=== PATIENT | male | born 1945 | race Caucasian/White ===

== ENCOUNTER 2019-04-27 15:46 | Inpatient (IN) ==
[2019-04-27] MEDS ORDERED: IOPAMIDOL 100 ML BOTTLE IV ONE (15:47)
[2019-04-27] MEDS ORDERED: 0.9 % SODIUM CHLORIDE 500 ML IV ONE (16:09)
--- NOTE | 2019-04-27 16:13 | Emergency Department Note ---
Abdominal Pain HPI - General Chief Complaint: Abdominal Pain Stated Complaint: Abdominal pain/ concern for bowel blockage Time Seen by Provider: 04/27/19 15:57 Source: patient Mode of arrival: ambulatory Limitations: no limitations - History of Present Illness HPI Narrative: 73-year-old male patient presents emergency department with chief complaint of abdominal pain, distention, and constipation. Patient tells me has not had a normal bowel movement since Monday. He describes the abdominal pain is diffuse throughout his abdomen. He describes a "tightness" when he tries to move around. He has an known history of Crohn's disease and has undergone a bowel resection in 1974. He denies any systemic fever, sweats, chills, shortness of breath, parasternal chest pain, palpitations, nausea, vomiting, dysuria, hematuria, or focal weakness. Review his active problem list is rather extensive but shows the following: Fever of unknown origin, ankylosis of SI joints, inflammatory bowel disease, osteoarthritis and knee, idiopathic peripheral neuropathy, atrial fibrillation, kidney stones, hypertension, CVA, macular degeneration. - Related Data Home Medications Medication Instructions Recorded Confirmed PreserVision AREDS PO .qd 03/12/15 04/24/19 cyanocobalamin (vitamin B-12) 1,000 mcg PO QDAY tab 03/12/15 04/27/19 1,000 mcg tablet ramipril 5 mg capsule 5 mg PO QDAY cap 03/12/15 04/27/19 omeprazole 20 mg capsule,delayed PO #90 cap 08/16/18 04/24/19 release rivaroxaban 20 mg tablet 20 mg PO QDAY 08/16/18 04/27/19 Allergies Allergy/AdvReac Type Severity Reaction Status Date / Time No Known Drug Allergies Allergy Verified 04/27/19 15:51 Review of Systems All systems ED: reviewed and negative except as stated. Abdominal Pain PMH - Social History Smoking status: Former smoker Physical Exam Limitations: no limitations General appearance: alert, in no apparent distress Head: atraumatic, normocephalic Eye: Present: normal appearance, PERRL, EOMI. Absent: scleral icterus, conjunctival injection ENT: Present: normal oropharynx, mucous membranes moist Neck: Present: trachea midline. Absent: lymphadenopathy, thyromegaly Chest: Present: symmetric chest wall rise Respiratory: Present: normal lung sounds bilaterally. Absent: respiratory distress, wheezes, stridor, accessory muscle use, prolonged expiratory phase Cardiovascular: Present: regular rate, normal rhythm. Absent: systolic murmur, diastolic murmur Abdominal: Present: distention, tenderness, rigidity, hyperactive bowel sounds, scar (midline surgical scar to the area below the umbilicus.), other (percussion showing hypertympanic sounds throughout.). Absent: guarding, rebound, organomegaly Abdominal tenderness: Present: diffuse, moderate Extremities: Absent: pedal edema, pretibial edema, calf tenderness Back: Absent: CVA tenderness (R), CVA tenderness (L) Neurological: Present: alert, oriented X3 Psychiatric: Present: normal affect, normal mood Skin: Present: warm Course Course Narrative: Patient is brought into the emergency department and a history of physical exam was performed. Saline lock was established and laboratory studies were drawn. A contrast abdomen/pelvic CT scan was ordered. Normal saline at 500 mL bolus was provided. Review of his laboratory studies show the following: CBC elevated WBC 14.9, granulocytes percent 85.9, granulocytes #12.8, all as normal limits. CMP potassium 3.0, chloride 95, glucose 171, alkaline phosphatase 156, albumin 3.1, globulin 3.8. ESR 96. CRP 36.2. Urinalysis showing clear yellow urine with specific gravity 1.015 and pH 6.0. Positive proteinuria, several RBC, and several casts. No C&S indicated. Abdominal CT scan with contrast read by the radiologist as recurrent active Crohn's disease involving the distal jejunum and ileum. He mentions is no evidence of abscess, fistula, or bowel obstruction. After reviewing all the data I reached out to a military lawyer in [place] (Dr. Flowers) and requested guidance about treatment options. At this time the gastrologist recommended admission, bowel rest, IV steroids, and pain control. She advised me that the typical treatment course is anywhere from 3-5 days. However, He should respond to therapy within 24-48 hours. If not then further workup may be needed. I discussed this with the patient verbalizes understanding. I then reached out for hospitalist (Dr. Mac) and explained the patient's need for admission. At this time Dr. Mac recommended a lactic acid level be drawn. He has consented to receive the patient. At this time the patient admitted to the hospital under the care of Dr. Mac. All further treatment decisions will be carried out by him. Vital Signs Temperature 97.7 F 04/27/19 15:47 Pulse Rate 114 H 04/27/19 15:47 Respiratory Rate 17 04/27/19 15:47 Blood Pressure 118/69 04/27/19 15:47 Pulse Oximetry (%) 96 04/27/19 15:47 Temperature 97.7 F 04/27/19 15:47 Pulse Rate 88 04/27/19 19:01 Respiratory Rate 22 04/27/19 19:01 Blood Pressure 123/88 04/27/19 20:01 Pulse Oximetry (%) 97 04/27/19 20:01 Abdominal Pain - Lab Data Lab results reviewed: Yes I reviewed the patient's lab results. Result diagrams: 04/27/19 16:15 04/27/19 16:15 Lab Results 04/27/19 04/27/19 04/27/19 Range/Units 16:15 16:15 16:15 WBC 14.9 H (4.5-11.0) K/mcL RBC 4.68 (4.50-5.90) M/mcL Hgb 13.7 (13.5-16.5) g/dL Hct 41.6 (41.0-55.0) % POC Hct 42.0 (41.0-55.0) % MCV 88.7 (80.0-100.0) fL MCH 29.2 (26.0-34.0) pg MCHC 32.9 (31.0-36.0) g/dL RDW 12.4 (11.5-14.5) % Plt Count 248 (140-440) K/mcL MPV 9.9 (7.4-10.4) fL Gran % 85.9 H (38.0-78.0) % Lymph % (Auto) 5.4 L (15.5-49.0) % [place] % (Auto) 8.6 (1.0-12.0) % Eos % (Auto) 0.1 (0.0-7.0) % Baso % (Auto) 0 (0.0-2.0) % Gran # 12.8 H (1.8-8.0) K/mcL Lymph # (Auto) 0.8 L (1.5-4.8) K/mcL [place] # (Auto) 1.3 H (0.1-0.9) K/mcL Eos # (Auto) 0 (0.0-0.7) K/mcL Baso # (Auto) 0 (0.0-0.3) K/mcL ESR 96 H (0-15) mm/hr POC Sodium 136 (133-145) mmol/L Sodium 135 (133-145) mmol/L POC Potassium 2.9 L* (3.3-5.1) mmol/L Potassium 3.0 L (3.3-5.1) mmol/L POC Chloride 96 (96-108) mmol/L Chloride 95 L (96-108) mmol/L Carbon Dioxide 27 (22-30) mmol/L POC Total CO2 29 (22-30) mmol/L Anion Gap 13.0 (8-16) POC BUN 19 (8-23) mg/dl BUN 19 (8-23) mg/dl Creatinine 1.0 (0.7-1.2) mg/dl POC Creatinine 1.1 (0.7-1.2) mg/dl GFR Calculation 74 Glucose 171 H (70-105) mg/dL POC Glucose 168 H (70-105) mg/dL Calcium 9.8 (8.6-10.4) mg/dl POC WB Ioniz Calcium 1.14 L (1.16-1.32) mmol/L Total Bilirubin 0.9 (0.0-1.0) mg/dL AST 17 (0-37) U/l ALT 12 (0-40) U/l Alkaline Phosphatase 156 H (39-117) U/L C-Reactive Protein (0.0-0.8) mg/dl Total Protein 6.9 (5.9-8.4) gm/dL Albumin 3.1 L (3.2-5.2) gm/dL Globulin 3.8 H (2.2-3.7) gm/dL Albumin/Globulin Ratio 0.8 L (1.0-2.3) Urine Color Urine Appearance Urine pH (5.0-9.0) Ur Specific [place] (1.003-1.030) Urine Protein (NEG) mg/dL Urine Glucose (UA) (NEG) mg/dL Urine Ketones (NEG) mg/dL Urine Occult Blood (<0.03) mg/dL Urine Nitrate (NEG) Urine Bilirubin (NEG) mg/dL Urine Urobilinogen (NEG) mg/dL Ur Leukocyte Esterase (NEG) /uL Urine RBC (0-1) /hpf Urine WBC (0-4) /hpf Ur Squamous Epith Cells (0-4) /hpf Urine Bacteria (0) /hpf Hyaline Casts (0-2) /lpf Urine Mucus (0) /hpf Ur Culture Indicated? 04/27/19 04/27/19 Range/Units 16:15 18:24 WBC (4.5-11.0) K/mcL RBC (4.50-5.90) M/mcL Hgb (13.5-16.5) g/dL Hct (41.0-55.0) % POC Hct (41.0-55.0) % MCV (80.0-100.0) fL MCH (26.0-34.0) pg MCHC (31.0-36.0) g/dL RDW (11.5-14.5) % Plt Count (140-440) K/mcL MPV (7.4-10.4) fL Gran % (38.0-78.0) % Lymph % (Auto) (15.5-49.0) % [place] % (Auto) (1.0-12.0) % Eos % (Auto) (0.0-7.0) % Baso % (Auto) (0.0-2.0) % Gran # (1.8-8.0) K/mcL Lymph # (Auto) (1.5-4.8) K/mcL [place] # (Auto) (0.1-0.9) K/mcL Eos # (Auto) (0.0-0.7) K/mcL Baso # (Auto) (0.0-0.3) K/mcL ESR (0-15) mm/hr POC Sodium (133-145) mmol/L Sodium (133-145) mmol/L POC Potassium (3.3-5.1) mmol/L Potassium (3.3-5.1) mmol/L POC Chloride (96-108) mmol/L Chloride (96-108) mmol/L Carbon Dioxide (22-30) mmol/L POC Total CO2 (22-30) mmol/L Anion Gap (8-16) POC BUN (8-23) mg/dl BUN (8-23) mg/dl Creatinine (0.7-1.2) mg/dl POC Creatinine (0.7-1.2) mg/dl GFR Calculation Glucose (70-105) mg/dL POC Glucose (70-105) mg/dL Calcium (8.6-10.4) mg/dl POC WB Ioniz Calcium (1.16-1.32) mmol/L Total Bilirubin (0.0-1.0) mg/dL AST (0-37) U/l ALT (0-40) U/l Alkaline Phosphatase (39-117) U/L C-Reactive Protein 36.2 H (0.0-0.8) mg/dl Total Protein (5.9-8.4) gm/dL Albumin (3.2-5.2) gm/dL Globulin (2.2-3.7) gm/dL Albumin/Globulin Ratio (1.0-2.3) Urine Color Yellow Urine Appearance Clear Urine pH 6.0 (5.0-9.0) Ur Specific [place] 1.015 (1.003-1.030) Urine Protein 30 A (NEG) mg/dL Urine Glucose (UA) Negative (NEG) mg/dL Urine Ketones Neg (NEG) mg/dL Urine Occult Blood Neg (<0.03) mg/dL Urine Nitrate Neg (NEG) Urine Bilirubin Neg (NEG) mg/dL Urine Urobilinogen 4.0 A (NEG) mg/dL Ur Leukocyte Esterase Neg (NEG) /uL Urine RBC 3 H (0-1) /hpf Urine WBC 0 (0-4) /hpf Ur Squamous Epith Cells 0 (0-4) /hpf Urine Bacteria 0 (0) /hpf Hyaline Casts 6 H (0-2) /lpf Urine Mucus Few (0) /hpf Ur Culture Indicated? No - Radiology Data Radiology results reviewed: Yes I reviewed the patient's radiology results. Ordering Physician: Kaz Grimes PA-C Date of Service: 04/27/19 Procedure(s): CT abdomen pelvis w con Accession Number(s): [id number] History: Abdominal pain, distention, Crohn's disease and prior bowel resection 1974 TECHNIQUE: The patient was imaged following intravenous but no oral contrast from the diaphragm to the symphysis pubis. Sagittal and coronal reformats are created. Radiation exposure was limited using dose reduction technology. FINDINGS: There are several linear bands of scar tissue in both lung bases. There are few small scattered cysts in the liver. The majority of these were present in 2010. Beneath the capsule high in segment seven of the right lobe there is an oval-shaped 1.6 cm nodule with low-level homogeneous enhancement. This was not clearly identified in 2010. The spleen is normal in size and homogeneous. There is a 2 cm accessory spleen posterior and inferior to the lower pole. Gallbladder is contracted. There are no stones in the bile ducts are nondilated. No mass or inflammation are present in the pancreas. The adrenals are normal. Patient has a few cysts in both kidneys. The largest is located anteriorly in the lower pole of the right kidney and measures 3.4 cm. Kidney stones were seen on the prior CT scan and patient had a stone in the distal left ureter causing hydronephrosis on the previous exam. These findings have since resolved. There are several segments of inflamed distal jejunum and ileum in the mid pelvis. There is asymmetric thickening of the person and focal dilatation of some of the segments. There are skip lesions. There is inflammation and stranding of the adjacent mesenteric fat. No abscess or ascites are present. There is no bowel obstruction. There is no inflammation of the wall of the large intestine. No diverticular present. Patient has scattered plaques in the aorta. Prostate is mildly enlarged and contains calcifications. There is chronic ankylosis in the lumbar spine and lower thoracic spine. There is squaring of the vertebra. These findings have remained stable since 2010 and are consistent with ankylosing spondylitis. IMPRESSION: Recurrent active Crohn's disease involving the distal jejunum and ileum. There is no evidence of an abscess and there is no obvious fistula. No bowel obstruction Kaztomasa Grimes was called with the results Interpreted and Authenticated by: Juancarlos Sandy 04/27/19 - EKG Data EKG attestation: Yes I reviewed and interpreted this EKG., Yes There are no EKG findings of acute coronary syndrome, Yes This EKG will be read by human projectile Disposition Pt seen by SOUND EFFECTS TECHNICIAN/PA only: Yes Clinical Impression: Crohn's colitis Qualifiers: Digestive disease complication type: unspecified complication Qualified Code(s): K50.119 - Crohn's disease of large intestine with unspecified complications Disposition: Xfer As Inpt ([facility]) Condition: Good Instructions: Crohn Disease (ED) Additional Instructions: Patient is being admitted to the hospital to the care of the hospitalist (Dr. Mac). All other treatment decisions will be carried out by him. Referrals: Catalino Londono MD [Primary Care Provider] - Time of Disposition: 20:25
[2019-04-27 16:23] LABS: POC Blood Urea Nitrogen 19 mg/dl (8-23); POC CO2 29 mmol/L (22-30); POC Calcium, Ionized 1.14 mmol/L (1.16-1.32); POC Chloride 96 mmol/L (96-108); POC Creatinine 1.1 mg/dl (0.7-1.2); POC Glucose, Random 168 mg/dL (70-105); POC Potassium 2.9 mmol/L (3.3-5.1); POC Sodium 136 mmol/L (133-145)
[2019-04-27] MEDS ORDERED: POTASSIUM CHLORIDE 20 MEQ in DEXTROSE 5% IN WATER 250 ML IV ONE (16:29)
[2019-04-27 16:48] LABS: Basophils # (Auto) 0 K/mcL (0.0-0.3); Basophils % (Auto) 0 % (0.0-2.0); Eosinophils # (Auto) 0 K/mcL (0.0-0.7); Eosinophils % (Auto) 0.1 % (0.0-7.0); Granulocytes % (Auto) 85.9 % (38.0-78.0); Hematocrit 41.6 % (41.0-55.0); Hemoglobin 13.7 g/dL (13.5-16.5); Lymphocytes # (Auto) 0.8 K/mcL (1.5-4.8); Lymphocytes % (Auto) 5.4 % (15.5-49.0); Mean Cell Volume 88.7 fL (80.0-100.0); Mean Corpuscular HGB Conc 32.9 g/dL (31.0-36.0); Mean Platelet Volume 9.9 fL (7.4-10.4); Monocytes # (Auto) 1.3 K/mcL (0.1-0.9); Monocytes % (Auto) 8.6 % (1.0-12.0); Platelet Count 248 K/mcL (140-440); RBC 4.68 M/mcL (4.50-5.90); Red Cell Distribution Width 12.4 % (11.5-14.5); WBC 14.9 K/mcL (4.5-11.0)
[2019-04-27 17:05] LABS: ALT/SGPT 12 U/l (0-40); AST/SGOT 17 U/l (0-37); Albumin 3.1 gm/dL (3.2-5.2); Albumin/Globulin Ratio 0.8 (1.0-2.3); Alkaline Phosphatase 156 U/L (39-117); Bilirubin,Total 0.9 mg/dL (0.0-1.0); Blood Urea Nitrogen 19 mg/dl (8-23); Calcium 9.8 mg/dl (8.6-10.4); Carbon Dioxide 27 mmol/L (22-30); Chloride 95 mmol/L (96-108); Globulin 3.8 gm/dL (2.2-3.7); Glomerular Filtration Rate 74; Glucose 171 mg/dL (70-105)
--- NOTE | 2019-04-27 17:18 | Cat Scan Report ---
History: Abdominal pain, distention, Crohn's disease and prior bowel resection 1974 TECHNIQUE: The patient was imaged following intravenous but no oral contrast from the diaphragm to the symphysis pubis. Sagittal and coronal reformats are created. Radiation exposure was limited using dose reduction technology. FINDINGS: There are several linear bands of scar tissue in both lung bases. There are few small scattered cysts in the liver. The majority of these were present in 2010. Beneath the capsule high in segment seven of the right lobe there is an oval-shaped 1.6 cm nodule with low-level homogeneous enhancement. This was not clearly identified in 2010. The spleen is normal in size and homogeneous. There is a 2 cm accessory spleen posterior and inferior to the lower pole. Gallbladder is contracted. There are no stones in the bile ducts are nondilated. No mass or inflammation are present in the pancreas. The adrenals are normal. Patient has a few cysts in both kidneys. The largest is located anteriorly in the lower pole of the right kidney and measures 3.4 cm. Kidney stones were seen on the prior CT scan and patient had a stone in the distal left ureter causing hydronephrosis on the previous exam. These findings have since resolved. There are several segments of inflamed distal jejunum and ileum in the mid pelvis. There is asymmetric thickening of the person and focal dilatation of some of the segments. There are skip lesions. There is inflammation and stranding of the adjacent mesenteric fat. No abscess or ascites are present. There is no bowel obstruction. There is no inflammation of the wall of the large intestine. No diverticular present. Patient has scattered plaques in the aorta. Prostate is mildly enlarged and contains calcifications. There is chronic ankylosis in the lumbar spine and lower thoracic spine. There is squaring of the vertebra. These findings have remained stable since 2010 and are consistent with ankylosing spondylitis. IMPRESSION: Recurrent active Crohn's disease involving the distal jejunum and ileum. There is no evidence of an abscess and there is no obvious fistula. No bowel obstruction Kaz Rueda was called with the results Interpreted and Authenticated by: Juancarlos Sandy 04/27/19
[2019-04-27 18:14] LABS: C-Reactive Protein 36.2 mg/dl (0.0-0.8)
[2019-04-27 19:20] LABS: Appearance,Urine CLEAR; Bacteria,Urine 0 /hpf (0); Bilirubin,Urine NEG (NEG); Color,Urine YELLOW; Culture Indicated,Urine NO; Glucose,Urine (UA) NEGATIVE (NEG); Ketones,Urine NEG (NEG); Leukocyte Esterase,Urine NEG /uL (NEG); Mucus,Urine FEW /hpf (0); Nitrate,Urine NEG (NEG); Protein,Urine 30 mg/dL (NEG); Specific Gravity,Urine 1.015 (1.003-1.030); Urine Blood NEG mg/dL (<0.03); Urine Hyaline Cast 6 /lpf (0-2); Urine RBC 3 /hpf (0-1); Urine Squamous Epithelial Cell 0 /hpf (0-4); Urine WBC 0 /hpf (0-4)
[2019-04-27] MEDS ORDERED: 0.9 % SODIUM CHLORIDE 1,000 ML IV ONE (20:31)
--- NOTE | 2019-04-27 20:37 | Internal Med History&Physical ---
Medical - H&P: [facility] Patient information: Note initiated : 04/27/19 at 8:34 pm Service Date, if different from initiated Date: [] Patient: Jeremy Turner a 73 y/o M admitted on for Abdominal pain/ concern for bowel blockage. Chief Complaint: [] History of present illness: Mr. Turner is a 73 year old M With fever and abdominal pain. Patient states he had a Crohn's flare about 3 weeks ago. And then last Monday he was feeling better and [facility]. And then that night started having abdominal pain again which is described as crampy and tight generalized but also focused on right lower quadrant at times. She went to the [facility] Monday. Is bowel movements were one on Monday and then he did have a small and on . Typically has 5 a day. Today he has continued abdominal pain and fevers and presented to the ED. In the ED his vitals were stable, afebrile. Head of leukocytosis. Lactate was okay 1.3. Elevated ESR and CRP. And low potassium. CT and pelvis showed evidence of recurrent active Crohn's disease. Case was discussed with [facility] account manager b2b who recommended admission , bowel rest and IV Solu-Medrol, and pain control. Patient had abdominal distention as well and was worried about a bowel obstruction which the CT did not show. Patient did have a large bowel movement in the ED which did improve his distention and abdominal pain. Denies nausea vomiting. Review of Systems: Pertinent positives above. Denies headache//chills/nausea/vomiting/chest pain/cough/dyspnea/diarrhea. Pertinent positives as above. Medical - H&P: [facility] Medical history: Medical History (Last Reviewed 04/24/19 @ 17:18 by Aristides Brown PA-C) Encounter for long-term (current) use of high-risk medication (Acute) Back stiffness (Acute) Ankylosis of sacroiliac joint (Acute) Back pain (Acute) Ankylosing spondylitis (Acute) History of tobacco use (Chronic) Low back pain (Chronic) IBD (inflammatory bowel disease) (Chronic) Bursitis of left shoulder (Chronic) Left shoulder pain (Chronic) Scabies (Chronic ~03/2016) Pain of left heel (Chronic) Left epididymitis (Chronic) Spondyloarthritis (Acute) Primary osteoarthritis of left knee (Chronic) Idiopathic peripheral neuropathy (Chronic) Body mass index (BMI) of 24.0-24.9 in adult (Chronic) Plantar fascial fibromatosis (Chronic) Crohn's disease of small intestine without complication (Chronic) Chronic atrial fibrillation (Chronic) Kidney stones (Acute) Crohn disease (Acute) Hypertension (Acute) Atrial fibrillation (Acute) Joint pain (Acute) Hernia, inguinal (Acute) Urolithiasis (Acute) Stroke (Acute) Arthritis (Acute) Macular degeneration, wet (Acute) White coat hypertension (Acute) Past Surgical History (Last Reviewed 04/24/19 @ 17:18 by Aristides Brown PA-C) S/P trigger finger release (Acute) H/O colonoscopy (Chronic) History of kidney surgery (Chronic) History of right inguinal hernia repair (Chronic) History of surgery (Chronic) Family History (Last Reviewed 04/24/19 @ 17:18 by Aristides Brown PA-C) Father High blood cholesterol Heart disease Father Diabetes mellitus Mother Atrial fibrillation Arthritis Bleeding disorder Sister Diabetes mellitus Brother Diabetes mellitus High blood cholesterol Arthritis Heart disease Sister Leukemia Family/Other No problems noted. Daughter Crohns disease Social History (Last Updated 04/24/19 @ 18:54 by Aristides Brown PA-C) Quit smoking 20 years ago Drugs alcohol rarely Lives at home with Medical - H&P: Meds Home Medications Medication Instructions Recorded Confirmed Type PreserVision AREDS PO .qd 03/12/15 04/24/19 History cyanocobalamin (vitamin B-12) 1,000 mcg PO QDAY tab 03/12/15 04/27/19 History 1,000 mcg tablet ramipril 5 mg capsule 5 mg PO QDAY cap 03/12/15 04/27/19 History omeprazole 20 mg capsule,delayed PO #90 cap 08/16/18 04/24/19 History release rivaroxaban 20 mg tablet 20 mg PO QDAY 08/16/18 04/27/19 History Allergies Allergy/AdvReac Type Severity Reaction Status Date / Time No Known Drug Allergies Allergy Verified 04/27/19 15:51 Medical - H&P: Exam - Constitutional Vitals: Temp Pulse Resp BP Pulse Ox 97.7 F 88 22 123/88 97 04/27/19 15:47 04/27/19 19:01 04/27/19 19:01 04/27/19 20:01 04/27/19 20:01 Exam: General: Alert, Awake, No acute Distress Eyes/N/T: EOMI, PEERL, DMM Head/Neck: neck supple, normocephalic atraumatic CV: RRR, No murmurs, normal s1/s2 Pulm: Clear b/l, no wheezing/rhonchi/rales Abd: soft, mild TTP x4 quads but primarily lower quadrants, no rebound, +BS x4 Ext: no clubbing/cyanosis/edema Neuro: Alert, no focal deficits, moves all extremities, CN 2-12 grossly intact, symmetrical strength b/l upper/lower, sensations intact b/l upper/lower Skin: warm/dry Medical - H&P: Reslt - Labs CBC & Chem 7: 04/27/19 16:15 04/27/19 16:15 Labs: Short CBC 04/27/19 Range/Units 16:15 WBC 14.9 H (4.5-11.0) K/mcL Hgb 13.7 (13.5-16.5) g/dL Hct 41.6 (41.0-55.0) % Plt Count 248 (140-440) K/mcL BMP 04/27/19 16:15 Sodium 135 Potassium 3.0 L Chloride 95 L Carbon Dioxide 27 BUN 19 Creatinine 1.0 Glucose 171 H Calcium 9.8 Liver Function 04/27/19 Range/Units 16:15 Total Bilirubin 0.9 (0.0-1.0) mg/dL AST 17 (0-37) U/l ALT 12 (0-40) U/l Alkaline Phosphatase 156 H (39-117) U/L Albumin 3.1 L (3.2-5.2) gm/dL Urine 04/27/19 Range/Units 18:24 Urine Color Yellow Urine Appearance Clear Urine pH 6.0 (5.0-9.0) Ur Specific [place] 1.015 (1.003-1.030) Urine Protein 30 A (NEG) mg/dL Urine Glucose (UA) Negative (NEG) mg/dL - Impressions CT abdomen pelvis with Crohn's no obstruction or abscess or perforation Medical - H&P: A/P - Narrative A/P Narrative: A: *Crohn's exacerbation: -Case discussed with [facility] account manager b2b who recommended IV steroids/bowel rest/pain control *Hypokalemia: *Volume depletion: *h/o ankylosing spondylitis: Follows with Dr. Dao *PAF: regular at this time, rivaroxaban *h/o CVA: 2/2 above *HTN: on ACEI *GERD: * P: -NPO -IVF's -Solu-Medrol 60mg IV daily -prn pain meds -PRN electrolyte replacement -IV BP prn while npo, start ACEI when tolerating oral -ppx: Rivaroxaban/home ppi full code
[2019-04-27] MEDS ORDERED: POLYETHYLENE GLYCOL 3350 17 GM PACKET PO PRN (21:33)
[2019-04-27] MEDS ORDERED: LABETALOL 5 MG/ML ML IV PRN (21:33)
[2019-04-27] MEDS ORDERED: ACETAMINOPHEN 325 MG TABLET PO PRN (21:33)
[2019-04-27] MEDS ORDERED: ONDANSETRON 4 MG/2 ML VIAL IV PRN (21:33)
[2019-04-27] MEDS: FAMOTIDINE/PF 20 MG/2 ML VIAL IV SCH (22:24)
[2019-04-27] MEDS: methylPREDNISolone SOD SUCC 125 MG/2 ML VIAL IV SCH (22:24)
[2019-04-27] MEDS: 0.9 % SODIUM CHLORIDE 1,000 ML IV SCH (22:24)
[2019-04-27] MEDS: 0.9 % SODIUM CHLORIDE 10 ML SYRINGE IV SCH (22:28)
[2019-04-28 05:30] LABS: Basophils # (Auto) 0 K/mcL (0.0-0.3); Basophils % (Auto) 0 % (0.0-2.0); Eosinophils # (Auto) 0 K/mcL (0.0-0.7); Eosinophils % (Auto) 0 % (0.0-7.0); Granulocytes % (Auto) 95.6 % (38.0-78.0); Hematocrit 38.8 % (41.0-55.0); Hemoglobin 12.8 g/dL (13.5-16.5); Lymphocytes # (Auto) 0.3 K/mcL (1.5-4.8); Lymphocytes % (Auto) 2.7 % (15.5-49.0); Mean Cell Volume 89.2 fL (80.0-100.0); Mean Corpuscular HGB Conc 32.9 g/dL (31.0-36.0); Mean Platelet Volume 9.4 fL (7.4-10.4); Monocytes # (Auto) 0.2 K/mcL (0.1-0.9); Monocytes % (Auto) 1.7 % (1.0-12.0); Platelet Count 200 K/mcL (140-440); RBC 4.35 M/mcL (4.50-5.90); Red Cell Distribution Width 12.6 % (11.5-14.5)
[2019-04-28 05:57] LABS: ALT/SGPT 14 U/l (0-40); AST/SGOT 21 U/l (0-37); Albumin 2.6 gm/dL (3.2-5.2); Albumin/Globulin Ratio 0.7 (1.0-2.3); Alkaline Phosphatase 181 U/L (39-117); Bilirubin,Direct 0.2 mg/dL (0.0-0.3); Bilirubin,Total 0.5 mg/dL (0.0-1.0); Blood Urea Nitrogen 17 mg/dl (8-23); Calcium 8.9 mg/dl (8.6-10.4); Carbon Dioxide 23 mmol/L (22-30); Chloride 102 mmol/L (96-108); Glomerular Filtration Rate 89; Glucose 135 mg/dL (70-105); Lactate Dehydrogenase 194 U/L (94-250); Phosphorous 3.1 mg/dL (2.7-4.5); Triglycerides 93 mg/dl (<150); Uric Acid 4.7 mg/dL (2.5-8.0)
[2019-04-28] MEDS: 0.9 % SODIUM CHLORIDE 10 ML SYRINGE IV SCH ×3 (06:19→21:21)
--- NOTE | 2019-04-28 07:33 | Internal Med Progress Note ---
Medical - PN: Subj Patient information: Note initiated : 04/28/19 at 7:30 am Service Date, if different from initiated Date: [] Patient: Jeremy Turner a 73 y/o M admitted on 04/27/19 for Abdominal pain/ concern for bowel blockage. Chief Complaint: [] Interval history: Mr. Turner is a 73 year old M With fever and abdominal pain. Patient states he had a Crohn's flare about 3 weeks ago. And then last Monday he was feeling better [facility] And then that night started having abdominal pain again which is described as crampy and tight generalized but also focused on right lower quadrant at times. She went to the [facility] on Monday. Is bowel movements were one on Monday and then he did have a small and on . Typically has 5 a day. Today he has continued abdominal pain and fevers and presented to the ED. In the ED his vitals were stable, afebrile. Head of leukocytosis. Lactate was okay 1.3. Elevated ESR and CRP. And low potassium. CT and pelvis showed evidence of recurrent active Crohn's disease. Case was discussed with [place] welt sewer who recommended admission , bowel rest and IV Solu-Medrol, and pain control. Patient had abdominal distention as well and was worried about a bowel obstruction which the CT did not show. Patient did have a large bowel movement in the ED which did improve his distention and abdominal pain. Denies nausea vomiting. 04/28 Feeling better this morning. Is able to sleep well last night. No overnight events. Had a large bowel movement ED none overnight but feels like he might need to go again. Review of Systems: denies headache/fever/chills/nausea/vomiting/chest pain/cough/dyspnea/diarrhea. Otherwise see above. - Constitutional Vitals: Vital Signs Temp Pulse Resp BP Pulse Ox 97.4 F 95 H 16 125/85 95 04/28/19 06:47 04/28/19 03:25 04/28/19 06:47 04/28/19 06:47 04/28/19 06:47 Period Temp Pulse Resp BP Sys/Kirby Pulse Ox Last 24 Hr 97.4 F-99.4 F 85-114 16-24 115-146/68-92 95-98 Intake and Output 04/27/19 04/28/19 04/28/19 21:59 05:59 13:59 Intake Total 1318 0 Output Total 175 Balance 1318 -175 Weight 76.385 kg Intake & Output: Intake & Output 04/27/19 04/28/19 04/28/19 21:59 05:59 13:59 Intake Total 1318 0 Output Total 175 Balance 1318 -175 Weight 76.385 kg Intake: IV 1318 Sodium Chloride 0.9% 1,000 ml @ 558 Wide Open IV BOLUS ONE Rx#: [id number] Sodium Chloride 0.9% 500 ml @ 500 Wide Open IV B[facility] ONE Rx#: [id number] Potassium Chloride 20 Meq In 260 Dextrose 5% in Water 250 ml @ 130 mls/hr IV ONCE ONE Rx#: [id number] Oral 0 Output: Void Amount 175 Other: Urine Appearance Clear Urine Color Dark Yellow Exam: General: Alert, Awake, No acute Distress Eyes/N/T: EOMI, Head/Neck: neck supple, CV: RRR, No murmurs, Pulm: Clear b/l, no wheezing/rhonchi/rales Abd: soft, minimal TTP lower quadrants improved, no rebound, +BS x4 Ext: no clubbing/cyanosis/edema Neuro: Alert, no focal deficits, moves all extremities, Skin: warm/dry Medical - PN: Obj Da - Labs CBC & Chem 7: 04/28/19 04:30 04/28/19 04:30 Labs: Abnormal Lab Results 04/28/19 04/28/19 04/27/19 04:30 04:30 18:24 WBC 13.0 H RBC 4.35 L Hgb 12.8 L Hct 38.8 L Gran % 95.6 H Lymph % (Auto) 2.7 L Gran # 12.4 H Lymph # (Auto) 0.3 L [place] # (Auto) ESR POC Potassium Potassium Chloride Glucose 135 H POC Glucose POC WB Ioniz Calcium Alkaline Phosphatase 181 H C-Reactive Protein Albumin 2.6 L Globulin 4.0 H Albumin/Globulin Ratio 0.7 L Urine Protein 30 A Urine Urobilinogen 4.0 A Urine RBC 3 H Hyaline Casts 6 H 04/27/19 04/27/19 04/27/19 16:15 16:15 16:15 WBC RBC Hgb Hct Gran % Lymph % (Auto) Gran # Lymph # (Auto) [place] # (Auto) ESR 96 H POC Potassium 2.9 L* Potassium 3.0 L Chloride 95 L Glucose 171 H POC Glucose 168 H POC WB Ioniz Calcium 1.14 L Alkaline Phosphatase 156 H C-Reactive Protein 36.2 H Albumin 3.1 L Globulin 3.8 H Albumin/Globulin Ratio 0.8 L Urine Protein Urine Urobilinogen Urine RBC Hyaline Casts 04/27/19 16:15 WBC 14.9 H RBC Hgb Hct Gran % 85.9 H Lymph % (Auto) 5.4 L Gran # 12.8 H Lymph # (Auto) 0.8 L [place] # (Auto) 1.3 H ESR POC Potassium Potassium Chloride Glucose POC Glucose POC WB Ioniz Calcium Alkaline Phosphatase C-Reactive Protein Albumin Globulin Albumin/Globulin Ratio Urine Protein Urine Urobilinogen Urine RBC Hyaline Casts Meds: Medications Acetaminophen (Tylenol) 650 mg PO Q6HP PRN PRN Reason: PAIN/FEVER > 101 Famotidine (Pepcid) 20 mg IV Q12 [facility] Last Admin: 04/27/19 22:24 Dose: 20 mg Documented by: Sodium Chloride (Sodium Chloride 0.9%) 1,000 mls @ 100 mls/hr IV .Q10H [facility] Stop: 04/28/19 17:32 Last Admin: 04/27/19 22:24 Dose: 100 mls/hr Documented by: Labetalol HCl (Trandate) 0 mg IV Q2HP PRN PRN Reason: Hypertension Methylprednisolone Sodium Succinate (Solu-Medrol) 60 mg IV DAILY [facility] Last Admin: 04/27/19 22:24 Dose: 60 mg Documented by: Morphine Sulfate (Morphine) 1 - 4 mg IV Q3HP PRN PRN Reason: PAIN LEVEL > 6 Ondansetron HCl (Zofran) 4 mg IV Q6HP PRN PRN Reason: Nausea And Vomiting Polyethylene Glycol (Miralax) 17 gm PO DAILYP PRN PRN Reason: Constipation Rivaroxaban (Xarelto) 20 mg PO QPMCC [facility] Sodium Chloride (Saline Flush) 10 ml IV Q8 [facility] Last Admin: 04/28/19 06:19 Dose: Not Given Documented by: Medical - PN: A/P - Time Spent With Patient Total time spent is greater than 50% in coordination of care (as documented) at patient's floor/unit and/or counseling patient: - Narrative A/P Narrative: A: *Crohn's exacerbation: -Case discussed with [facility] who recommended IV steroids/bowel rest/pain control -follows with Mirtha Mayes *Hypokalemia: resolved *Volume depletion: improved *h/o ankylosing spondylitis: Follows with Dr. Dao *PAF: regular at this time, rivaroxaban *h/o CVA: 2/2 above *HTN: on ACEI *GERD: * P: -NPO, start clears later today -IVF's -Solu-Medrol 60mg IV daily, eventually transition to prednisone 40mg daily with taper per GI specialist. -prn pain meds -PRN electrolyte replacement -IV BP prn while npo, start ACEI when tolerating oral -ppx: Rivaroxaban/home ppi full code Medical - PN: Qual - Stroke Symptom Onset Unknown: No - VTE Deep Vein Thrombosis/Pulmonary Embolism Present on Admission: No
[2019-04-28] MEDS: 0.9 % SODIUM CHLORIDE 1,000 ML IV SCH (08:24)
[2019-04-28] MEDS: FAMOTIDINE/PF 20 MG/2 ML VIAL IV SCH ×2 (09:38→21:21)
[2019-04-28] MEDS: methylPREDNISolone SOD SUCC 125 MG/2 ML VIAL IV SCH (09:38)
--- NOTE | 2019-04-28 10:33 | Discharge Summary ---
Medical - DS: Prov Patient information: Note initiated : 04/28/19 at 10:29 am Service Date, if different from initiated Date: [] Patient: Jeremy Turner 73 y/o M admitted on 04/27/19 for Abdominal pain/ concern for bowel blockage. Chief Complaint: [] Date of admission: 04/27/19 21:25 Discharge date: 04/29/19 Primary care physician: Catalino Londono Consults: 04/27/19 Consult to Physician [CONS] Stat Comment: Consulting Provider: Burton Mac Reason For Exam: Physician to Consult Medical - DS: Meds - Discharge Medications Prescriptions: predniSONE [Prednisone] 40 mg PO QAC #1 tab Active and Home Medications: Home Medications PreserVision AREDS PO .qd 03/12/15 [History Confirmed 04/24/19 Last Taken 04/23/19 08:00] cyanocobalamin (vitamin B-12) 1,000 mcg tablet 1,000 mcg PO QDAY tab 03/12/15 [History Confirmed 04/27/19 Last Taken 04/20/19 12:00] ramipril 5 mg capsule 5 mg PO QDAY cap 03/12/15 [History Confirmed 04/27/19 Last Taken 04/26/19 20:00] omeprazole 20 mg capsule,delayed release PO #90 cap 08/16/18 [History Confirmed 04/24/19 Last Taken 04/23/19 08:00] rivaroxaban 20 mg tablet 20 mg PO QDAY 08/16/18 [History Confirmed 04/27/19 Last Taken 04/26/19 17:00] Home Medications PreserVision AREDS PO .qd 03/12/15 [History Confirmed 04/24/19 Last Taken 04/23/19 08:00] cyanocobalamin (vitamin B-12) 1,000 mcg tablet 1,000 mcg PO QDAY tab 03/12/15 [History Confirmed 04/27/19 Last Taken 04/20/19 12:00] ramipril 5 mg capsule 5 mg PO QDAY cap 03/12/15 [History Confirmed 04/27/19 Last Taken 04/26/19 20:00] omeprazole 20 mg capsule,delayed release PO #90 cap 08/16/18 [History Confirmed 04/24/19 Last Taken 04/23/19 08:00] rivaroxaban 20 mg tablet 20 mg PO QDAY 08/16/18 [History Confirmed 04/27/19 Last Taken 04/26/19 17:00] predniSONE [Prednisone] 40 mg PO [facility] #1 tablet 04/28/19 [Rx Last Taken Unknown] Medical - DS: Hosp Hospital Course: Mr. Turner is a 73 year old M With fever and abdominal pain. Patient states he had a Crohn's flare about 3 weeks ago. And then last Monday he was feeling better [facility]. And then that night started having abdominal pain again which is described as crampy and tight generalized but also focused on right lower quadrant at times. She went to the [facility] on Monday. Is bowel movements were one on Monday and then he did have a small and on . Typically has 5 a day. Today he has continued abdominal pain and fevers and presented to the ED. In the ED his vitals were stable, afebrile. Head of leukocytosis. Lactate was okay 1.3. Elevated ESR and CRP. And low potassium. CT and pelvis showed evidence of recurrent active Crohn's disease. Case was di scussed with [employer] vis[employer] who recommended admission , bowel rest and IV Solu-Medrol, and pain control. Patient had abdominal distention as well and was worried about a bowel obstr uction which the CT did not show. Patient did have a large bowel movement in the ED which did improve his distention and abdominal pain. Denies nausea vomiting. 10/6 Feeling better this morning. Is able to sleep well last night. No overnight events. Had a large bowel movement ED none overnight but feels like he might need to go again. 10/7 Bowel movement yesterday. Tolerating liquid diet. Continues to feel better. No abdominal pain anymore. Stable for discharge. Follow-up with Mirtha Mayes for further tapering of prednisone Discharge diagnosis: Crohn's exacerbation hypokalemia volume depletion Secondary discharge diagnosis: Paroxysmal atrial fibrillation ankylosing spondylitis history of stroke hypertension GERD - Time Spent with Patient Total time spent providing and/or coordinating discharge services: Greater than 30 minutes Medical - DS: Exam - Constitutional Vitals: Vital Signs Temp Pulse Pulse Resp BP BP BP 04/28/19 06:47 97.4 F 16 125/85 04/28/19 03:25 97.5 F 95 H 20 131/88 10/05/19 23:16 99.4 F H 94 H 16 116/68 04/27/19 21:30 98.2 F 97 H 20 146/92 04/27/19 20:32 138/85 04/27/19 20:01 123/88 04/27/19 19:31 115/81 04/27/19 19:01 88 22 119/76 04/27/19 18:46 21 121/81 04/27/19 18:31 87 130/79 04/27/19 17:46 87 133/84 04/27/19 17:31 85 127/81 04/27/19 17:16 85 18 128/78 04/27/19 17:06 91 H 24 H 136/84 04/27/19 15:47 97.7 F 114 H 17 118/69 Pulse Ox 04/28/19 06:47 95 04/28/19 03:25 95 04/27/19 23:16 96 04/27/19 21:30 98 04/27/19 20:32 97 04/27/19 20:01 97 04/27/19 19:31 04/27/19 19:01 96 04/27/19 18:46 04/27/19 18:31 97 04/27/19 17:46 96 04/27/19 17:31 97 04/27/19 17:16 97 04/27/19 17:06 98 04/27/19 15:47 96 Intake and Output 04/27/19 04/28/19 04/28/19 21:59 05:59 13:59 Intake Total 1318 0 1000 Output Total 175 Balance 1318 -175 1000 Intake: IV 1318 1000 Sodium Chloride 0.9% 1,000 ml @ 558 1000 100 mls/hr IV .Q10H [facility] Rx#: [id number] Sodium Chloride 0.9% 500 ml @ 500 Wide Open IV BOLUS ONE Rx#: [id number] Potassium Chloride 20 Meq In 260 Dextrose 5% in Water 250 ml @ 130 mls/hr IV ONCE ONE Rx#: [id number] Oral 0 Output: Void Amount 175 Other: Urine Appearance Clear Urine Color Dark Yellow Weight 76.385 kg Medical - DS: Data Labs on day of discharge: Labs from last 24 hours 04/28/19 04/28/19 04/27/19 04:30 04:30 18:24 WBC 13.0 H RBC 4.35 L Hgb 12.8 L Hct 38.8 L POC Hct MCV 89.2 MCH 29.4 MCHC 32.9 RDW 12.6 Plt Count 200 MPV 9.4 Gran % 95.6 H Lymph % (Auto) 2.7 L [place] % (Auto) 1.7 Eos % (Auto) 0 Baso % (Auto) 0 Gran # 12.4 H Lymph # (Auto) 0.3 L [place] # (Auto) 0.2 Eos # (Auto) 0 Baso # (Auto) 0 ESR POC Sodium Sodium 141 POC Potassium Potassium 3.7 POC Chloride Chloride 102 Carbon Dioxide 23 POC Total CO2 Anion Gap 16.0 POC BUN BUN 17 Creatinine 0.8 POC Creatinine GFR Calculation 89 Glucose 135 H POC Glucose Uric Acid 4.7 Calcium 8.9 POC WB Ioniz Calcium Phosphorus 3.1 Magnesium 2.1 Total Bilirubin 0.5 Direct Bilirubin 0.2 GGT 57 AST 21 ALT 14 Alkaline Phosphatase 181 H Lactate Dehydrogenase 194 C-Reactive Protein Total Protein 6.6 Albumin 2.6 L Globulin 4.0 H Albumin/Globulin Ratio 0.7 L Triglycerides 93 Urine Color Yellow Urine Appearance Clear Urine pH 6.0 Ur Specific [place] 1.015 Urine Protein 30 A Urine Glucose (UA) Negative Urine Ketones Neg Urine Occult Blood Neg Urine Nitrate Neg Urine Bilirubin Neg Urine Urobilinogen 4.0 A Ur Leukocyte Esterase Neg Urine RBC 3 H Urine WBC 0 Ur Squamous Epith Cells 0 Urine Bacteria 0 Hyaline Casts 6 H Urine Mucus Few Ur Culture Indicated? No 04/27/19 04/27/19 04/27/19 16:15 16:15 16:15 WBC RBC Hgb Hct POC Hct 42.0 MCV MCH MCHC RDW Plt Count MPV Gran % Lymph % (Auto) [place] % (Auto) Eos % (Auto) Baso % (Auto) Gran # Lymph # (Auto) [place] # (Auto) Eos # (Auto) Baso # (Auto) ESR 96 H POC Sodium 136 Sodium 135 POC Potassium 2.9 L* Potassium 3.0 L POC Chloride 96 Chloride 95 L Carbon Dioxide 27 POC Total CO2 29 Anion Gap 13.0 POC BUN 19 BUN 19 Creatinine 1.0 POC Creatinine 1.1 GFR Calculation 74 Glucose 171 H POC Glucose 168 H Uric Acid Calcium 9.8 POC WB Ioniz Calcium 1.14 L Phosphorus Magnesium Total Bilirubin 0.9 Direct Bilirubin GGT AST 17 ALT 12 Alkaline Phosphatase 156 H Lactate Dehydrogenase C-Reactive Protein 36.2 H Total Protein 6.9 Albumin 3.1 L Globulin 3.8 H Albumin/Globulin Ratio 0.8 L Triglycerides Urine Color Urine Appearance Urine pH Ur Specific [place] Urine Protein Urine Glucose (UA) Urine Ketones Urine Occult Blood Urine Nitrate Urine Bilirubin Urine Urobilinogen Ur Leukocyte Esterase Urine RBC Urine WBC Ur Squamous Epith Cells Urine Bacteria Hyaline Casts Urine Mucus Ur Culture Indicated? 04/27/19 16:15 WBC 14.9 H RBC 4.68 Hgb 13.7 Hct 41.6 POC Hct MCV 88.7 MCH 29.2 MCHC 32.9 RDW 12.4 Plt Count 248 MPV 9.9 Gran % 85.9 H Lymph % (Auto) 5.4 L [place] % (Auto) 8.6 Eos % (Auto) 0.1 Baso % (Auto) 0 Gran # 12.8 H Lymph # (Auto) 0.8 L [place] # (Auto) 1.3 H Eos # (Auto) 0 Baso # (Auto) 0 ESR POC Sodium Sodium POC Potassium Potassium POC Chloride Chloride Carbon Dioxide POC Total CO2 Anion Gap POC BUN BUN Creatinine POC Creatinine GFR Calculation Glucose POC Glucose Uric Acid Calcium POC WB Ioniz Calcium Phosphorus Magnesium Total Bilirubin Direct Bilirubin GGT AST ALT Alkaline Phosphatase Lactate Dehydrogenase C-Reactive Protein Total Protein Albumin Globulin Albumin/Globulin Ratio Triglycerides Urine Color Urine Appearance Urine pH Ur Specific [place] Urine Protein Urine Glucose (UA) Urine Ketones Urine Occult Blood Urine Nitrate Urine Bilirubin Urine Urobilinogen Ur Leukocyte Esterase Urine RBC Urine WBC Ur Squamous Epith Cells Urine Bacteria Hyaline Casts Urine Mucus Ur Culture Indicated? Medical - DS: A/P - Patient/Caregiver Discharge Instructions Activity: increase activity as tolerated Diet: Regular Diet Additional Instructions: Patient is being admitted to the hospital to the care of the hospitalist (Dr. Mac). All other treatment decisions will be carried out by him. Prescriptions: predniSONE [Prednisone] 40 mg PO QAC #1 tab - Follow up Plan Follow up with: Catalino Londono MD [Primary Care Provider] - Mirtha Mayes ARNP [Nurse Practitioner] - Disposition: Home, Self-Care Prognosis: Fair Rehab Potential: Fair Overall status at discharge: patient is back to baseline Medical - DS: Qual - VTE Deep Vein Thrombosis/Pulmonary Embolism Present on Admission: No
[2019-04-28] MEDS ORDERED: RIVAROXABAN 20 MG TABLET PO SCH (17:30)
[2019-04-29 07:01] LABS: Basophils # (Auto) 0 K/mcL (0.0-0.3); Basophils % (Auto) 0 % (0.0-2.0); Eosinophils # (Auto) 0 K/mcL (0.0-0.7); Eosinophils % (Auto) 0 % (0.0-7.0); Granulocytes % (Auto) 91.1 % (38.0-78.0); Hematocrit 38.3 % (41.0-55.0); Hemoglobin 12.6 g/dL (13.5-16.5); Lymphocytes # (Auto) 0.7 K/mcL (1.5-4.8); Lymphocytes % (Auto) 4.3 % (15.5-49.0); Mean Cell Volume 88.3 fL (80.0-100.0); Monocytes # (Auto) 0.7 K/mcL (0.1-0.9); Monocytes % (Auto) 4.6 % (1.0-12.0); Platelet Count 268 K/mcL (140-440); RBC 4.33 M/mcL (4.50-5.90); Red Cell Distribution Width 12.4 % (11.5-14.5); WBC 15.9 K/mcL (4.5-11.0)
--- NOTE | 2019-04-29 07:18 | Internal Med Progress Note ---
Medical - PN: Subj Patient information: Note initiated : 04/29/19 at 7:15 am Service Date, if different from initiated Date: [] Patient: Jeremy Turner a 73 y/o M admitted on 04/27/19 for Abdominal pain/ concern for bowel blockage. Chief Complaint: [] Interval history: Mr. Turner is a 73 year old M With fever and abdominal pain. Patient states he had a Crohn's flare about 3 weeks ago. And then last Monday he was feeling better [facility]. And then that night started having abdominal pain again which is described as crampy and tight generalized but also focused on right lower quadrant at times. She went to the [facility] on Monday. Is bowel movements were one on Monday and then he did have a small and on . Typically has 5 a day. Today he has continued abdominal pain and fevers and presented to the ED. In the ED his vitals were stable, afebrile. Head of leukocytosis. Lactate was okay 1.3. Elevated ESR and CRP. And low potassium. CT and pelvis showed evidence of recurrent active Crohn's disease. Case was discussed with [place] special events coordinator who recommended admission , bowel rest and IV Solu-Medrol, and pain control. Patient had abdominal distention as well and was worried about a bowel obstruction which the CT did not show. Patient did have a large bowel movement in the ED which did improve his distention and abdominal pain. Denies nausea vomiting. 10/6 Feeling better this morning. Is able to sleep well last night. No overnight events. Had a large bowel movement ED none overnight but feels like he might need to go again. 10/7 Bowel movement yesterday. Tolerating liquid diet. Continues to feel better. No abdominal pain anymore. Review of Systems: denies headache/fever/chills/nausea/vomiting/chest pain/cough/dyspnea/diarrhea. Otherwise see above. - Constitutional Vitals: Vital Signs Temp Pulse Resp BP Pulse Ox 97.8 F 88 16 111/69 96 04/28/19 22:50 04/29/19 04:00 04/29/19 04:00 04/28/19 22:50 04/28/19 22:50 Period Temp Pulse Resp BP Sys/Kirby Pulse Ox Last 24 Hr 97.2 F-97.9 F 88-91 12-20 111-142/69-91 96-98 Intake and Output 04/28/19 04/29/19 04/29/19 21:59 05:59 13:59 Intake Total 400 Balance 400 Weight 80.739 kg Intake & Output: Intake & Output 04/28/19 04/29/19 04/29/19 21:59 05:59 13:59 Intake Total 400 Balance 400 Weight 80.739 kg Intake: Oral 400 Other: Stool Size Large # Voids 2 3 # Bowel Movements 1 Exam: General: Alert, Awake, No acute Distress Eyes/N/T: EOMI, Head/Neck: neck supple, CV: RRR, No murmurs, Pulm: Clear b/l, no wheezing/rhonchi/rales Abd: soft, nontender, no rebound, +BS x4 Ext: no clubbing/cyanosis/edema Neuro: Alert, no focal deficits, moves all extremities, Skin: warm/dry Medical - PN: Obj Da - Labs CBC & Chem 7: 04/29/19 05:19 04/28/19 04:30 Labs: Abnormal Lab Results 04/29/19 04/28/19 04/28/19 05:19 04:30 04:30 WBC 15.9 H 13.0 H RBC 4.33 L 4.35 L Hgb 12.6 L 12.8 L Hct 38.3 L 38.8 L Gran % 91.1 H 95.6 H Lymph % (Auto) 4.3 L 2.7 L Gran # 14.5 H 12.4 H Lymph # (Auto) 0.7 L 0.3 L [place] # (Auto) ESR POC Potassium Potassium Chloride Glucose 135 H POC Glucose POC WB Ioniz Calcium Alkaline Phosphatase 181 H C-Reactive Protein Albumin 2.6 L Globulin 4.0 H Albumin/Globulin Ratio 0.7 L Urine Protein Urine Urobilinogen Urine RBC Hyaline Casts 04/27/19 04/27/19 04/27/19 18:24 16:15 16:15 WBC RBC Hgb Hct Gran % Lymph % (Auto) Gran # Lymph # (Auto) [place] # (Auto) ESR 96 H POC Potassium Potassium Chloride Glucose POC Glucose POC WB Ioniz Calcium Alkaline Phosphatase C-Reactive Protein 36.2 H Albumin Globulin Albumin/Globulin Ratio Urine Protein 30 A Urine Urobilinogen 4.0 A Urine RBC 3 H Hyaline Casts 6 H 04/27/19 04/27/19 16:15 16:15 WBC 14.9 H RBC Hgb Hct Gran % 85.9 H Lymph % (Auto) 5.4 L Gran # 12.8 H Lymph # (Auto) 0.8 L [place] # (Auto) 1.3 H ESR POC Potassium 2.9 L* Potassium 3.0 L Chloride 95 L Glucose 171 H POC Glucose 168 H POC WB Ioniz Calcium 1.14 L Alkaline Phosphatase 156 H C-Reactive Protein Albumin 3.1 L Globulin 3.8 H Albumin/Globulin Ratio 0.8 L Urine Protein Urine Urobilinogen Urine RBC Hyaline Casts Meds: Medications Acetaminophen (Tylenol) 650 mg PO Q6HP PRN PRN Reason: PAIN/FEVER > 101 Famotidine (Pepcid) 20 mg IV Q12 [facility] Last Admin: 04/28/19 21:21 Dose: 20 mg Documented by: Labetalol HCl (Trandate) 0 mg IV Q2HP PRN PRN Reason: Hypertension Methylprednisolone Sodium Succinate (Solu-Medrol) 60 mg IV DAILY [facility] Last Admin: 04/28/19 09:38 Dose: 60 mg Documented by: Morphine Sulfate (Morphine) 1 - 4 mg IV Q3HP PRN PRN Reason: PAIN LEVEL > 6 Ondansetron HCl (Zofran) 4 mg IV Q6HP PRN PRN Reason: Nausea And Vomiting Polyethylene Glycol (Miralax) 17 gm PO DAILYP PRN PRN Reason: Constipation Rivaroxaban (Xarelto) 20 mg PO QPMCC [facility] Last Admin: 04/28/19 17:16 Dose: 20 mg Documented by: Sodium Chloride (Saline Flush) 10 ml IV Q8 [facility] Last Admin: 04/28/19 21:21 Dose: 10 ml Documented by: Medical - PN: A/P - Time Spent With Patient Total time spent is greater than 50% in coordination of care (as documented) at patient's floor/unit and/or counseling patient: - Narrative A/P Narrative: A: *Crohn's exacerbation: improved -Case discussed with [facility] special events coordinator who recommended IV steroids/bowel rest/pain control -follows with Mirtha Mayes *Leukocytosis from steroids and initially from above *Hypokalemia: resolved *Volume depletion: improved *h/o ankylosing spondylitis: Follows with Dr. Dao *PAF: regular at this time, rivaroxaban *h/o CVA: 2/2 above *HTN: on ACEI *GERD: * P: -tolerating liquid diet -Solu-Medrol 60mg IV daily, eventually transition to prednisone 40mg daily with taper per GI specialist. -prn pain meds -PRN electrolyte replacement -start home PO ACEI -ppx: Rivaroxaban/home ppi full code Medical - PN: Qual - Stroke Symptom Onset Unknown: No - VTE Deep Vein Thrombosis/Pulmonary Embolism Present on Admission: No
[2019-04-29 07:52] LABS: ALT/SGPT 16 U/l (0-40); AST/SGOT 18 U/l (0-37); Albumin 2.6 gm/dL (3.2-5.2); Albumin/Globulin Ratio 0.8 (1.0-2.3); Alkaline Phosphatase 150 U/L (39-117); Bilirubin,Direct < 0.2 mg/dL (0.0-0.3); Bilirubin,Total 0.3 mg/dL (0.0-1.0); Blood Urea Nitrogen 22 mg/dl (8-23); Carbon Dioxide 23 mmol/L (22-30); Chloride 103 mmol/L (96-108); Globulin 3.4 gm/dL (2.2-3.7); Glomerular Filtration Rate 89; Glucose 131 mg/dL (70-105); Lactate Dehydrogenase 126 U/L (94-250); Phosphorous 3.2 mg/dL (2.7-4.5); Triglycerides 110 mg/dl (<150); Uric Acid 5.2 mg/dL (2.5-8.0)
[2019-04-29] MEDS: FAMOTIDINE/PF 20 MG/2 ML VIAL IV SCH (08:52)
[2019-04-29] MEDS: methylPREDNISolone SOD SUCC 125 MG/2 ML VIAL IV SCH (08:52)
[2019-04-29] MEDS: RAMIPRIL 2.5 MG CAPSULE PO SCH ×2 (08:53→09:01)
[2019-04-29] MEDS: 0.9 % SODIUM CHLORIDE 10 ML SYRINGE IV SCH (09:01)
== END 2019-04-29 11:21 | disposition home or self-care (01) | DRG 387 ==
LOC: ED 15:46 → MEDSUR 21:25
PROVIDERS: ADMIT Internal Medicine; ATTEND Internal Medicine

== ENCOUNTER 2019-06-05 13:33 | Inpatient (IN) ==
[2019-06-05] MEDS ORDERED: IOPAMIDOL 100 ML BOTTLE IV ONE (13:34)
[2019-06-05 14:29] LABS: Basophils # (Auto) 0.1 K/mcL (0.0-0.3); Basophils % (Auto) 0.7 % (0.0-2.0); Eosinophils # (Auto) 0.1 K/mcL (0.0-0.7); Eosinophils % (Auto) 0.4 % (0.0-7.0); Granulocytes % (Auto) 83.9 % (38.0-78.0); Hematocrit 37.9 % (41.0-55.0); Hemoglobin 12.3 g/dL (13.5-16.5); Lymphocytes # (Auto) 1.4 K/mcL (1.5-4.8); Lymphocytes % (Auto) 9.1 % (15.5-49.0); Mean Cell Volume 85.9 fL (80.0-100.0); Mean Corpuscular HGB Conc 32.5 g/dL (31.0-36.0); Mean Platelet Volume 8.3 fL (7.4-10.4); Monocytes # (Auto) 0.9 K/mcL (0.1-0.9); Monocytes % (Auto) 5.9 % (1.0-12.0); Platelet Count 318 K/mcL (140-440); RBC 4.41 M/mcL (4.50-5.90); Red Cell Distribution Width 14.2 % (11.5-14.5); WBC 15.3 K/mcL (4.5-11.0)
[2019-06-05 14:30] LABS: POC Blood Urea Nitrogen 12 mg/dl (8-23); POC CO2 28 mmol/L (22-30); POC Calcium, Ionized 1.19 mmol/L (1.16-1.32); POC Chloride 101 mmol/L (96-108); POC Glucose, Random 90 mg/dL (70-105); POC Potassium 3.8 mmol/L (3.3-5.1); POC Sodium 138 mmol/L (133-145)
[2019-06-05 14:34] LABS: Appearance,Urine HAZY; Bacteria,Urine 0 /hpf (0); Bilirubin,Urine NEG (NEG); Color,Urine STRAW; Culture Indicated,Urine YES; Glucose,Urine (UA) NEGATIVE (NEG); Ketones,Urine NEG (NEG); Leukocyte Esterase,Urine 500 /uL (NEG); Mucus,Urine FEW /hpf (0); Nitrate,Urine NEG (NEG); Protein,Urine NEG (NEG); Specific Gravity,Urine 1.011 (1.000-1.035); Urine Blood 0.2 mg/dL (<0.03); Urine Hyaline Cast 1 /lpf (0-2); Urine RBC 5 /hpf (0-1); Urine Squamous Epithelial Cell 0 /hpf (0-4); Urine WBC 140 /hpf (0-4); Urobilinogen,Urine NEG (NEG)
[2019-06-05 14:47] LABS: ALT/SGPT 15 U/l (0-40); AST/SGOT 16 U/l (0-37); Albumin 3.9 gm/dL (3.2-5.2); Albumin/Globulin Ratio 1.2 (1.0-2.3); Alkaline Phosphatase 130 U/L (39-117); Bilirubin,Total 0.4 mg/dL (0.0-1.0); Blood Urea Nitrogen 13 mg/dl (8-23); C-Reactive Protein 4.1 mg/dl (0.0-0.8); Calcium 9.5 mg/dl (8.6-10.4); Carbon Dioxide 27 mmol/L (22-30); Chloride 99 mmol/L (96-108); Globulin 3.2 gm/dL (2.2-3.7); Glomerular Filtration Rate 84; Glucose 85 mg/dL (70-105)
--- NOTE | 2019-06-05 15:06 | Emergency Department Note ---
Abdominal Pain HPI - General Chief Complaint: Abdominal Pain Stated Complaint: abd pain, bowel obstruction, chrones disease Time Seen by Provider: 06/05/19 13:47 Source: patient Mode of arrival: ambulatory Limitations: no limitations - History of Present Illness HPI Narrative: 73-year-old male with known Crohn's comes in for severe abdominal pain. He ca lled ELFEGO Hinojosa who ordered an x-ray of his belly. X-ray shows partial small bowel obstruction. So Mirtha sent him here for further evaluation and likely admission. His pain is intermittent. Denies fever nausea vomiting. No bowel movement today but he normally has 4-5. He was admitted last month for the same thing and finished a course of prednisone for a Crohn's disease flare. He states he has a known stricture at the anastomosis of prior resection On Xarelto for atrial fibrillation He thinks he may have a urinary tract infection too. Some dysuria - Related Data Home Medications Medication Instructions Recorded Confirmed PreserVision AREDS PO .qd 03/12/15 04/24/19 cyanocobalamin (vitamin B-12) 1,000 mcg PO QDAY tab 03/12/15 04/27/19 1,000 mcg tablet ramipril 5 mg capsule 5 mg PO QDAY cap 03/12/15 04/27/19 omeprazole 20 mg capsule,delayed PO #90 cap 08/16/18 04/24/19 release rivaroxaban 20 mg tablet 20 mg PO QDAY 08/16/18 04/27/19 Previous Rx's Medication Instructions Recorded predniSONE [Prednisone] 40 mg PO [facility] #1 tab 04/28/19 Allergies Allergy/AdvReac Type Severity Reaction Status Date / Time No Known Drug Allergies Allergy Verified 06/05/19 13:38 Review of Systems All systems ED: reviewed and negative except as stated. Abdominal Pain PMH - Past Medical History Attestation: Yes: The following information was validated with the patient. [facility] Narrative: Family History (Last Reviewed 04/24/19 @ 17:18 by Aristides Brown PA-C) Father High blood cholesterol Heart disease Father Diabetes mellitus Mother Atrial fibrillation Arthritis Bleeding disorder Sister Diabetes mellitus Brother Diabetes mellitus High blood cholesterol Arthritis Heart disease Sister Leukemia Family/Other No problems noted. Daughter Crohns disease Medical History (Last Reviewed 04/24/19 @ 17:18 by Aristides Brown PA-C) Encounter for long-term (current) use of high-risk medication (Acute) Back stiffness (Acute) Ankylosis of sacroiliac joint (Acute) Back pain (Acute) Ankylosing spondylitis (Acute) History of tobacco use (Chronic) Low back pain (Chronic) IBD (inflammatory bowel disease) (Chronic) Bursitis of left shoulder (Chronic) Left shoulder pain (Chronic) Scabies (Chronic ~03/2016) Pain of left heel (Chronic) Left epididymitis (Chronic) Spondyloarthritis (Acute) Primary osteoarthritis of left knee (Chronic) Idiopathic peripheral neuropathy (Chronic) Body mass index (BMI) of 24.0-24.9 in adult (Chronic) Plantar fascial fibromatosis (Chronic) Crohn's disease of small intestine without complication (Chronic) Chronic atrial fibrillation (Chronic) Kidney stones (Acute) Crohn disease (Acute) Hypertension (Acute) Atrial fibrillation (Acute) Joint pain (Acute) Hernia, inguinal (Acute) Urolithiasis (Acute) Stroke (Acute) Arthritis (Acute) Macular degeneration, wet (Acute) White coat hypertension (Acute) Past Surgical History (Last Reviewed 04/24/19 @ 17:18 by Aristides Brown PA-C) S/P trigger finger release (Acute) H/O colonoscopy (Chronic) History of kidney surgery (Chronic) History of right inguinal hernia repair (Chronic) History of surgery (Chronic) Medical history: Reports: atrial fibrillation, TIA, other (crohns) Surgical history ED: Reports: colectomy - Social History Smoking status: Former smoker Physical Exam No acute distress he is able to sit up move around stand up etc. without any difficulty at this current time. Normocephalic atraumatic. Conjunctive are clear sclera white nonicteric. No nasal discharge or congestion. Oropharynx is pink and moist. Posterior pharynx is clear. Neck is supple without lymphadenopathy thyromegaly. No carotid bruit. Heart is regular rate and rhythm no murmur appreciated. Lungs clear to auscultation bilaterally without wheezes rales rhonchi or respiratory distress. Abdomen soft nontender nondistended but he does seem bloated. No peritoneal signs or guarding. I do not see any fluid wave rebound tenderness. No pedal edema. +2 radial pulse. Alert and oriented Limitations: no limitations Course Vital Signs Temperature 97.6 F 06/05/19 13:34 Pulse Rate 86 06/05/19 13:34 Respiratory Rate 18 06/05/19 13:34 Blood Pressure 111/72 06/05/19 13:34 Pulse Oximetry (%) 100 06/05/19 13:34 Temperature 97.6 F 06/05/19 13:34 Pulse Rate 84 06/05/19 15:58 Respiratory Rate 18 06/05/19 13:34 Blood Pressure 120/85 06/05/19 16:01 Pulse Oximetry (%) 97 06/05/19 15:58 Abdominal Pain - Lab Data Lab results reviewed: Yes I reviewed the patient's lab results. Result diagrams: 06/05/19 13:39 06/05/19 13:58 Lab Results 06/05/19 06/05/19 06/05/19 Range/Units 13:39 13:43 13:58 WBC 15.3 H (4.5-11.0) K/mcL RBC 4.41 L (4.50-5.90) M/mcL Hgb 12.3 L (13.5-16.5) g/dL Hct 37.9 L (41.0-55.0) % POC Hct (41.0-55.0) % MCV 85.9 (80.0-100.0) fL MCH 27.9 (26.0-34.0) pg MCHC 32.5 (31.0-36.0) g/dL RDW 14.2 (11.5-14.5) % Plt Count 318 (140-440) K/mcL MPV 8.3 (7.4-10.4) fL Gran % 83.9 H (38.0-78.0) % Lymph % (Auto) 9.1 L (15.5-49.0) % [place] % (Auto) 5.9 (1.0-12.0) % Eos % (Auto) 0.4 (0.0-7.0) % Baso % (Auto) 0.7 (0.0-2.0) % Gran # 12.9 H (1.8-8.0) K/mcL Lymph # (Auto) 1.4 L (1.5-4.8) K/mcL [place] # (Auto) 0.9 (0.1-0.9) K/mcL Eos # (Auto) 0.1 (0.0-0.7) K/mcL Baso # (Auto) 0.1 (0.0-0.3) K/mcL ESR 61 H (0-15) mm/hr POC Sodium (133-145) mmol/L Sodium 139 (133-145) mmol/L POC Potassium (3.3-5.1) mmol/L Potassium 3.6 (3.3-5.1) mmol/L POC Chloride (96-108) mmol/L Chloride 99 (96-108) mmol/L Carbon Dioxide 27 (22-30) mmol/L POC Total CO2 (22-30) mmol/L Anion Gap 13.0 (8-16) POC BUN (8-23) mg/dl BUN 13 (8-23) mg/dl Creatinine 0.9 (0.7-1.2) mg/dl POC Creatinine (0.7-1.2) mg/dl GFR Calculation 84 Glucose 85 (70-105) mg/dL POC Glucose (70-105) mg/dL Calcium 9.5 (8.6-10.4) mg/dl POC WB Ioniz Calcium (1.16-1.32) mmol/L Total Bilirubin 0.4 (0.0-1.0) mg/dL AST 16 (0-37) U/l ALT 15 (0-40) U/l Alkaline Phosphatase 130 H (39-117) U/L C-Reactive Protein 4.1 H (0.0-0.8) mg/dl Total Protein 7.1 (5.9-8.4) gm/dL Albumin 3.9 (3.2-5.2) gm/dL Globulin 3.2 (2.2-3.7) gm/dL Albumin/Globulin Ratio 1.2 (1.0-2.3) Urine Color Urine Appearance Urine pH (5.0-9.0) Ur Specific [place] (1.000-1.035) Urine Protein (NEG) mg/dL Urine Glucose (UA) (NEG) mg/dL Urine Ketones (NEG) mg/dL Urine Occult Blood (<0.03) mg/dL Urine Nitrate (NEG) Urine Bilirubin (NEG) mg/dL Urine Urobilinogen (NEG) mg/dL Ur Leukocyte Esterase (NEG) /uL Urine RBC (0-1) /hpf Urine WBC (0-4) /hpf Ur Squamous Epith Cells (0-4) /hpf Urine Bacteria (0) /hpf Hyaline Casts (0-2) /lpf Urine Mucus (0) /hpf Ur Culture Indicated? 06/05/19 06/05/19 Range/Units 14:00 14:20 WBC (4.5-11.0) K/mcL RBC (4.50-5.90) M/mcL Hgb (13.5-16.5) g/dL Hct (41.0-55.0) % POC Hct 35.0 L (41.0-55.0) % MCV (80.0-100.0) fL MCH (26.0-34.0) pg MCHC (31.0-36.0) g/dL RDW (11.5-14.5) % Plt Count (140-440) K/mcL MPV (7.4-10.4) fL Gran % (38.0-78.0) % Lymph % (Auto) (15.5-49.0) % [place] % (Auto) (1.0-12.0) % Eos % (Auto) (0.0-7.0) % Baso % (Auto) (0.0-2.0) % Gran # (1.8-8.0) K/mcL Lymph # (Auto) (1.5-4.8) K/mcL [place] # (Auto) (0.1-0.9) K/mcL Eos # (Auto) (0.0-0.7) K/mcL Baso # (Auto) (0.0-0.3) K/mcL ESR (0-15) mm/hr POC Sodium 138 (133-145) mmol/L Sodium (133-145) mmol/L POC Potassium 3.8 (3.3-5.1) mmol/L Potassium (3.3-5.1) mmol/L POC Chloride 101 (96-108) mmol/L Chloride (96-108) mmol/L Carbon Dioxide (22-30) mmol/L POC Total CO2 28 (22-30) mmol/L Anion Gap (8-16) POC BUN 12 (8-23) mg/dl BUN (8-23) mg/dl Creatinine (0.7-1.2) mg/dl POC Creatinine 1.0 (0.7-1.2) mg/dl GFR Calculation Glucose (70-105) mg/dL POC Glucose 90 (70-105) mg/dL Calcium (8.6-10.4) mg/dl POC WB Ioniz Calcium 1.19 (1.16-1.32) mmol/L Total Bilirubin (0.0-1.0) mg/dL AST (0-37) U/l ALT (0-40) U/l Alkaline Phosphatase (39-117) U/L C-Reactive Protein (0.0-0.8) mg/dl Total Protein (5.9-8.4) gm/dL Albumin (3.2-5.2) gm/dL Globulin (2.2-3.7) gm/dL Albumin/Globulin Ratio (1.0-2.3) Urine Color Straw Urine Appearance Hazy Urine pH 5.0 (5.0-9.0) Ur Specific [place] 1.011 (1.000-1.035) Urine Protein Neg (NEG) mg/dL Urine Glucose (UA) Negative (NEG) mg/dL Urine Ketones Neg (NEG) mg/dL Urine Occult Blood 0.2 A (<0.03) mg/dL Urine Nitrate Neg (NEG) Urine Bilirubin Neg (NEG) mg/dL Urine Urobilinogen Neg (NEG) mg/dL Ur Leukocyte Esterase 500 A (NEG) /uL Urine RBC 5 H (0-1) /hpf Urine WBC 140 H (0-4) /hpf Ur Squamous Epith Cells 0 (0-4) /hpf Urine Bacteria 0 (0) /hpf Hyaline Casts 1 (0-2) /lpf Urine Mucus Few (0) /hpf Ur Culture Indicated? Yes - Radiology Data Radiology results reviewed: Yes I reviewed the patient's radiology results. CT scan confirms Crohn's flare with partial small bowel obstruction at the terminal ileum. Skip lesions noted. Possible fistula. Discussed results with ELFEGO Hinojosa with gastroenterology Disposition Pt seen by [employer]/PA only: No Clinical Impression: Chronic atrial fibrillation, Partial small bowel obstruction Crohn disease Qualifiers: Gastrointestinal tract location: small and large intestine Digestive disease complication type: with intestinal obstruction Qualified Code(s): K50.812 - Crohn's disease of both small and large intestine with intestinal obstruction UTI (urinary tract infection) Qualifiers: Urinary tract infection type: acute cystitis Hematuria presence: with hematuria Qualified Code(s): N30.01 - Acute cystitis with hematuria Summary: Initial work-up with abdominal CT scan and laboratory. Treat with pain medicine nausea medicine and fluids as needed. Suspect bowel obstruction at anastomosis from previous bowel resection versus Crohn's flare CT confirms Crohn's flare. He does have a urinary tract infection as well. Give Zosyn on account of both. Discussed results with ELFEGO Hinojosa gastroenterology. Will admit to hospitalist and consult her and Dr. Grace. They will come see the patient later on this afternoon I then discussed the case with Dr. Patton, our hospitalist. He agreed to accept the patient for further care and evaluation in the hospital with above-noted consult Disposition: Xfer As Inpt ([facility]) Condition: Fair Referrals: Catalino Londono MD [Primary Care Provider] -
--- NOTE | 2019-06-05 15:24 | Cat Scan Report ---
CLINICAL INFORMATION: History of Crohn's disease. Small bowel obstruction pattern on plain film. Abdominal pain COMPARISON: Abdomen and pelvic CT 09/11/2009 and 06/05/2018. TECHNIQUE: Following enteric contrast, 80 cc of Isovue-370 were injected intravenously, and 60 seconds later, 0.625 mm helical slices were obtained from the mid heart through the subtrochanteric regions. Following reconstruction, 2.5 mm sagittal, coronal and axial reformatted images were processed and reviewed at bone, lung and soft tissue windows. Five minutes later, 0.625 mm helical slices were obtained from the mid heart through the kidneys and viewed at soft tissue windows.The exam was performed using radiation dose optimization techniques including, but not limited to, automated exposure control, adjustment of the mA and/or kV according to patient size and use of iterative reconstruction technique. FINDINGS: Lung bases show no abnormality - no effusion. The heart is mildly enlarged. Abdominal images show scattered simple cysts within the liver ranging up to 10 mm in the left hepatic lobe which demonstrate long-term stability. No significant focal hepatic lesions. The gallbladder and bile ducts are normal: CBD is 5 mm. Scattered simple cysts of both kidneys, predominantly on the right side, ranging up to 3.3 cm inferior pole. There are also demonstrate long-term stability. There is a 3 mm nonobstructing stone superior calyx right kidney. Both adrenal glands, spleen, pancreas and aorta, including aortic branches, are normal in size, configuration and attenuation without focal lesion. No free air, free fluid or adenopathy. Pelvic images show prostate is mildly enlarged but unchanged. It is 5.3 cm in transverse dimension. There is diffuse wall thickening of the urinary bladder suggests chronic bladder outlet narrowing. Crohn's changes are again seen: The distal 11 cm of the ileum show moderate wall and plicae circulares thickening with scattered mucosal enhancement. There is a moderate grade stricture at the terminal ileum resulting in partial small bowel obstruction. The small bowel proximal to this region is moderately dilated. There is a second skip region of Crohn's inflammation involves a 8 cm segment in the mid ileum resulting in a second mild stricture. There are at least 2-3 fibrous cord are, less likely, fistula between the inflamed small bowel loops and one between the sigmoid colon and small bowel. The colon is relatively decompressed, but shows no other gross abnormality. There is complete ankylosis across the SI joints. There is squaring of the vertebral corders and also ankylosis across all all lumbar facet joints compatible with associated ankylosing spondylitis IMPRESSION: 1. Chronic inflammatory changes: Distal 11 cm of ileum demonstrates moderate wall and plicae circulares thickening with stricturing of the terminal ileum and partial small bowel obstruction. There is a 8 cm skip lesion in the mid ileum which also demonstrates demonstrating wall thickening. Scattered mucosal enhancement suggesting that this is a combination of chronic fibrosis stenosis in Crohn's and noncicitration inflammatory disease. Scattered fibrotic cords or less likely fistula is seen between the small bowel loops and also the sigmoid colon. No abscess. 2. Complete ankylosis across the SI joints and lumbar facet joints with vertebral body squaring is compatible with associated ankylosing spondylitis. No change 3. Scattered hepatic and renal cysts - stable 4. 3 mm nonobstructing stone mid calyx left kidney stable Interpreted and Authenticated by: Dharmesh Nguyen 06/05/19
[2019-06-05] MEDS ORDERED: PIPERACILLIN SODIUM/TAZOBACTAM 3.375 GM in DEXTROSE 5% IN WATER 50 ML IV ONE (15:32)
[2019-06-05] MEDS ORDERED: SIMETHICONE 80 MG TAB.CHEW CHEWED ONE (15:56)
--- NOTE | 2019-06-05 16:34 | Internal Med History&Physical ---
Medical - H&P: HPI Patient information: Note initiated : 06/05/19 at 4:27 pm Service Date, if different from initiated Date: [] Patient: Jeremy Turner a 73 y/o M admitted on for Abd Pain, Bowel Obstruction, Chrones Disease. Chief Complaint: [] Chief complaint: Abdominal pain History of present illness: Mr. 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 Patient was sent to the ER for further evaluation where CT scan revealed stricture of the terminal ileum and partial small bowel obstruction. Patient was also found to have pyuria/elevated white count at 15,300. Patient received 1 dose of antibiotics after cultures were drawn. Subsequently hospitalist service was consulted. Patient was started on NG tube decompression. At the time evaluation patient is alert and oriented. He was able to answer most of the questions. He has had a similar episode in hospitalization recently which resolved after treatment with IV steroids with bowel obstruction resulting secondary to inflammation at the anastomosis site from underlying Crohn's. 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 His last dose was 4 weeks ago. Hospitalist service was consulted for admission. At the time of evaluation patient is alert and oriented. He was able to answer most questions. His symptoms started early in the morning with abdominal distention cramps and pain. He has not had a bowel movement in the last 24 hours. Symptoms were similar to the prior to presentation. Pain described as diffuse abdominal cramping 6 out of 10 to 8 out of 10 with associated nausea. Patient denies fever, chills, headache, photophobia, chest pain, shortness of breath, skin rash. Review of systems A 10 point review system was performed and is negative except for one discussed above Medical - H&P: PMH Medical history: Encounter for long-term (current) use of high-risk medication (Acute) Back stiffness (Acute) Ankylosis of sacroiliac joint (Acute) Back pain (Acute) Ankylosing spondylitis (Acute) History of tobacco use (Chronic) Low back pain (Chronic) IBD (inflammatory bowel disease) (Chronic) Bursitis of left shoulder (Chronic) Left shoulder pain (Chronic) Scabies (Chronic ~03/2016) Pain of left heel (Chronic) Left epididymitis (Chronic) Spondyloarthritis (Acute) Primary osteoarthritis of left knee (Chronic) Idiopathic peripheral neuropathy (Chronic) Body mass index (BMI) of 24.0-24.9 in adult (Chronic) Plantar fascial fibromatosis (Chronic) Crohn's disease of small intestine without complication (Chronic) Chronic atrial fibrillation (Chronic) Kidney stones (Acute) Crohn disease (Acute) Hypertension (Acute) Atrial fibrillation (Acute) Joint pain (Acute) Hernia, inguinal (Acute) Urolithiasis (Acute) Stroke (Acute) Arthritis (Acute) Macular degeneration, wet (Acute) White coat hypertension (Acute) Past Surgical History (Last Reviewed 04/24/19 @ 17:18 by Aristides Brown PA-C) S/P trigger finger release (Acute) H/O colonoscopy (Chronic) History of kidney surgery (Chronic) History of right inguinal hernia repair (Chronic) History of surgery (Chronic) Family History (Last Reviewed 04/24/19 @ 17:18 by Aristides Brown PA-C) Father High blood cholesterol Heart disease Father Diabetes mellitus Mother Atrial fibrillation Arthritis Bleeding disorder Sister Diabetes mellitus Brother Diabetes mellitus High blood cholesterol Arthritis Heart disease Sister Leukemia Family/Other No problems noted. Daughter Crohns disease Social History (Last Updated 04/24/19 @ 18:54 by Aristides Brown PA-C) Quit smoking 20 years ago Drugs alcohol rarely Lives at home Medical - H&P: Meds Home Medications Medication Instructions Recorded Confirmed Type PreserVision AREDS 1 tab PO DAILY 03/12/15 06/05/19 History cyanocobalamin (vitamin B-12) 1,000 mcg PO QDAY tab 03/12/15 04/27/19 History 1,000 mcg tablet ramipril 5 mg capsule 5 mg PO QDAY cap 03/12/15 06/05/19 History omeprazole 20 mg capsule,delayed 20 mg PO DAILY #90 cap 08/16/18 06/05/19 History release rivaroxaban 20 mg tablet 20 mg PO QDAY 08/16/18 06/05/19 History Famotidine/Ca Carb/Mag Hydrox 1 each PO BID PRN 06/05/19 06/05/19 History [Pepcid Complete Tablet Chew] Furosemide [Lasix] 20 mg PO DAILY 06/05/19 06/05/19 History Potassium Chloride [Klor-Con 8] 8 meq PO BID 06/05/19 06/05/19 History Allergies Allergy/AdvReac Type Severity Reaction Status Date / Time No Known Drug Allergies Allergy Verified 06/05/19 13:38 Medical - H&P: Exam - Constitutional Vitals: Temp Pulse Resp BP Pulse Ox 97.6 F 84 18 120/85 97 06/05/19 13:34 06/05/19 15:58 06/05/19 13:34 06/05/19 16:01 06/05/19 15:58 General appearance: no acute distress Exam: Alert and oriented Head normocephalic oral cavity dry Neck lymphadenopathy No ear nose discharge S1-S2 regular rhythm no murmur Chest clear to auscultation bilaterally Abdomen distended with tinkling bowel sounds/tenderness to palpation without rebound Lower extremity trace edema No cyanosis clubbing or joint swelling Skin no suspicious lesion Psych alert oriented no anxiety or agitation Neuro nonfocal Medical - H&P: Reslt - Labs CBC & Chem 7: 06/06/19 05:05 06/06/19 05:05 Labs: Short CBC 06/05/19 Range/Units 13:39 WBC 15.3 H (4.5-11.0) K/mcL Hgb 12.3 L (13.5-16.5) g/dL Hct 37.9 L (41.0-55.0) % Plt Count 318 (140-440) K/mcL BMP 06/05/19 13:58 Sodium 139 Potassium 3.6 Chloride 99 Carbon Dioxide 27 BUN 13 Creatinine 0.9 Glucose 85 Calcium 9.5 Liver Function 06/05/19 Range/Units 13:58 Total Bilirubin 0.4 (0.0-1.0) mg/dL AST 16 (0-37) U/l ALT 15 (0-40) U/l Alkaline Phosphatase 130 H (39-117) U/L Albumin 3.9 (3.2-5.2) gm/dL Urine 06/05/19 Range/Units 14:00 Urine Color Straw Urine Appearance Hazy Urine pH 5.0 (5.0-9.0) Ur Specific [place] 1.011 (1.000-1.035) Urine Protein Neg (NEG) mg/dL Urine Glucose (UA) Negative (NEG) mg/dL Medical - H&P: A/P (1) Partial small bowel obstruction Current visit: Yes Status: Acute * Partial small bowel obstruction secondary to Crohn's exacerbation and likely inflammation at the anastomotic site resulting in dynamic obstruction. GI on board. GI recommends initiating IV steroids/supportive management including analgesia/crystalloids/bowel rest and NG decompression. No indication for surgical consult at this time * Acute Crohn's flare-continue managed per GI * Complicated UTI-continue antibiotic coverage. Await cultures. De-escalate based on sensitivities. * Early sepsis secondary to above. Continue monitoring/crystalloids/management per guidelines * History of ankylosing spondylitis-patient follows up with Dr. Dao. Has been on Remicade every 6 weeks. On chronic prednisone * Proximal atrial fibrillation currently on anticoagulation, rate controlled. 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
[2019-06-05] MEDS ORDERED: MAGNESIUM SULFATE 2 GM/50 ML BAG IV PRN (16:50)
[2019-06-05] MEDS ORDERED: ACETAMINOPHEN 325 MG TABLET PO PRN (16:50)
[2019-06-05] MEDS ORDERED: ACETAMINOPHEN 650 MG/65 ML BOTTLE IV PRN (16:50)
[2019-06-05] MEDS ORDERED: POTASSIUM CHLORIDE 20 MEQ PACKET PO PRN (16:50)
[2019-06-05] MEDS ORDERED: hydrALAZINE 20 MG/ML VIAL IV PRN (16:50)
[2019-06-05] MEDS ORDERED: ONDANSETRON 4 MG/2 ML VIAL IV PRN (16:50)
[2019-06-05] MEDS ORDERED: methylPREDNISolone SOD SUCC 40 MG/ML VIAL IV ONE (17:29)
--- NOTE | 2019-06-05 17:29 | Internal Medicine Consult Note ---
Medical - CN: HPI - Data of Consult Patient: known to practice within the last 3 years Consult date: 06/05/19 Primary Care Provider: Catalino Londono - Consult Narrative Reason for consult: partial small bowel obstruction; Crohn's History of present illness: Mr. Turner is a 73 year old M with a long history of fistulizing, stricturing Crohn's disease history of small bowel obstruction requiring right hemicolectomy who had been treated on Pentasa for many years. He was diagnosed with ankylosing spondylitis in 2007 and started on Remicade 500 mg every 6 weeks with significant improvement in his back pain. He continued to have intermittent episodes of abdominal pain and diarrhea and ultimately was hospitalized in April with a Crohn's flare with CT showing ileal and jejunal thickening. During his hospitalization. He was started on IV Solu-Medrol and prednisone taper. Remicade infusion was delayed by visual training aide due to complaints of prostatitis. Serum trough level was normal and I asked that they resume his Remicade in light of lack of serious infection and recent Crohn's flare. His Remicade was administered 1-2 weeks past schedule. He recently tapered off his prednisone. Our office today after he awoke at 3 in the morning with abdominal bloating and distention. He tried had a bowel movement without any success. He was worried he may be developing recurrent small bowel obstruction and so abdominal x-ray was undertaken, which was consistent with partial small bowel Obstruction. He has been afebrile. He denies any vomiting. . 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 CC: Scooby Quan All systems: reviewed and no additional remarkable complaints except as stated - Gastrointestinal Gastrointestinal: Present: abdominal pain, bloating, constipation - Genitourinary Additional comments: Hematuria and dysuria with recent diagnosis of urinary tract infection, treated for 2 days on ciprofloxacin as an outpatient. He was given IV Zosyn in the emergency department Medical - CN: PMH Medical history: Crohn's disease, atrial fibrillation, congestive heart failure, hypertension, transient ischemic attack, kidney stones. Surgical history: Right hemicolectomy, kidney stone removal, possible small bowel resection Family history: reviewed and not pertinent Social history: and lives at home with his . He is active in volunteering at the [employer]. He likes to build models. He is a former tobacco user, having quit 20 years ago. He denies any recreational drug use. He drinks alcohol socially. Medical - CN: Meds Home Medications Medication Instructions Recorded Confirmed Type PreserVision AREDS 1 tab PO DAILY 03/12/15 06/05/19 History cyanocobalamin (vitamin B-12) 1,000 mcg PO QDAY tab 03/12/15 06/05/19 History 1,000 mcg tablet ramipril 5 mg capsule 5 mg PO QDAY cap 03/12/15 06/05/19 History omeprazole 20 mg capsule,delayed 20 mg PO DAILY #90 cap 08/16/18 06/05/19 History release rivaroxaban 20 mg tablet 20 mg PO QDAY 08/16/18 06/05/19 History Furosemide [Lasix] 20 mg PO DAILY 06/05/19 06/05/19 History Potassium Chloride [Klor-Con 8] 8 meq PO BID 06/05/19 06/05/19 History Allergies Allergy/AdvReac Type Severity Reaction Status Date / Time No Known Drug Allergies Allergy Verified 06/05/19 13:38 Medical - CN: Exam - Constitutional Vitals: Temp Pulse Resp BP Pulse Ox 97.6 F 83 18 118/79 99 06/05/19 16:52 06/05/19 16:52 06/05/19 16:52 06/05/19 16:52 06/05/19 16:52 General appearance: average body habitus, cooperative, mild distress - Head Head exam: Present: atraumatic, normal inspection, normocephalic - Eye Eye exam: Present: normal appearance - ENT ENT exam: Present: mucous membranes moist, normal exam - Neck Neck exam: Present: normal inspection. Absent: lymphadenopathy, thyromegaly - Respiratory Respiratory exam: Present: normal respiratory exam, CTAB - Cardiovascular Cardiovascular exam: Present: normal rate and rhythm. Absent: irregular rhythm, rubs - GI/Abdominal Additional comments: Abdomen is distended with bowel sounds. He has diffuse mild tenderness. There is no data spirometry, but deep palpation was avoided to patient's discomfort. - Extremities Exam Additional comments: Trace dependent edema - Neurological Exam Neurological exam: Present: alert, oriented X3 - Psychiatric Psychiatric exam: Present: normal affect, normal mood - Skin Skin exam: Present: dry, intact, normal color, warm Medical - CN: Result - Labs CBC & Chem 7: 06/05/19 13:39 06/05/19 13:58 Labs: Short CBC 06/05/19 Range/Units 13:39 WBC 15.3 H (4.5-11.0) K/mcL Hgb 12.3 L (13.5-16.5) g/dL Hct 37.9 L (41.0-55.0) % Plt Count 318 (140-440) K/mcL BMP 06/05/19 13:58 Sodium 139 Potassium 3.6 Chloride 99 Carbon Dioxide 27 BUN 13 Creatinine 0.9 Glucose 85 Calcium 9.5 Liver Function 06/05/19 Range/Units 13:58 Total Bilirubin 0.4 (0.0-1.0) mg/dL AST 16 (0-37) U/l ALT 15 (0-40) U/l Alkaline Phosphatase 130 H (39-117) U/L Albumin 3.9 (3.2-5.2) gm/dL Urine 06/05/19 Range/Units 14:00 Urine Color Straw Urine Appearance Hazy Urine pH 5.0 (5.0-9.0) Ur Specific [place] 1.011 (1.000-1.035) Urine Protein Neg (NEG) mg/dL Urine Glucose (UA) Negative (NEG) mg/dL Medical - CN: A/P (1) Crohn disease Status: Acute (2) Partial small bowel obstruction Status: Acute Assessment and plan: I reviewed his case with Dr. Donohue. I also talked to the hospitalist, Dr. Patton. We will insert NG tube and make him nothing by mouth. We will continue IV fluids. We will start him on Solu-Medrol bolus of 40 mg IV tonight and then 20 mg IV twice daily. we will also start him on 6 MP 50 mg daily. This is not on hospital formulary, so I will call it to his local pharmacy and have his bring it as a home medication. We discussed the risk of myelosuppression, hepatotoxicity, etc. There is a small risk of pancreatitis, so if he develops upper abdominal pain, he should be evaluated immediately. He understands that it may take 4-6 weeks to see the full benefit of this medication. During this time, serial CBCs and CMPs will be drawn. It is our hope that, with the initiation of prednisone and and decompression of his obstruction, any edema that is causing obstruction will resolve. If he has persistent obstructive symptoms after this. Crohn's flare is under control, we will consider colonoscopy with balloon dilatation of ileal stricture. He may ultimately require surgery. We will continue to follow him closely.
[2019-06-05] MEDS: HYDROmorphone 2 MG/ML VIAL IV PRN (17:54)
--- NOTE | 2019-06-05 18:27 | XRay Report ---
CLINICAL INFORMATION: NG tube position. Partial small bowel obstruction COMPARISON: None. FINDINGS: NG tube overlies the gastric fundus. Stomach and a few loops of upper small bowel are mildly dilated compatible with partial small bowel obstruction. No free air IMPRESSION: NG tube overlying the gastric fundus. There is a were instructed to advance the tube 8 cm. Interpreted and Authenticated by: Dharmesh Nguyen 06/05/19
[2019-06-05] MEDS: 0.9 % SODIUM CHLORIDE 1,000 ML IV SCH (20:05)
[2019-06-05] MEDS: DOCUSATE SODIUM 100 MG CAPSULE PO SCH (22:31)
[2019-06-05] MEDS: SENNOSIDES/DOCUSATE SODIUM 1 TAB TABLET PO SCH (22:32)
[2019-06-05] MEDS: 0.9 % SODIUM CHLORIDE 10 ML SYRINGE IV SCH (22:32)
[2019-06-05] MEDS: ENOXAPARIN 100 MG/ML SYRINGE SQ SCH (22:43)
[2019-06-05] MEDS: PIPERACILLIN SODIUM/TAZOBACTAM 3.375 GM in DEXTROSE 5% IN WATER 50 ML IV SCH (23:18)
[2019-06-05] MEDS ORDERED: BENZOCAINE/MENTHOL 1 LOZENGE PO PRN (23:34)
[2019-06-05] MEDS ORDERED: BENZOCAINE/MENTHOL 1 LOZENGE PO ONE (23:40)
[2019-06-06] MEDS: PIPERACILLIN SODIUM/TAZOBACTAM 3.375 GM in DEXTROSE 5% IN WATER 50 ML IV SCH ×4 (05:53→23:29)
[2019-06-06] MEDS: 0.9 % SODIUM CHLORIDE 10 ML SYRINGE IV SCH ×3 (05:56→22:05)
[2019-06-06] MEDS: methylPREDNISolone SOD SUCC 40 MG/ML VIAL IV SCH ×3 (06:36→20:51)
[2019-06-06 06:53] LABS: Hematocrit 38.6 % (41.0-55.0); Hemoglobin 12.6 g/dL (13.5-16.5); Mean Cell Volume 86.2 fL (80.0-100.0); Mean Corpuscular HGB Conc 32.8 g/dL (31.0-36.0); Mean Platelet Volume 8.4 fL (7.4-10.4); Platelet Count 315 K/mcL (140-440); RBC 4.48 M/mcL (4.50-5.90); Red Cell Distribution Width 13.8 % (11.5-14.5); WBC 9.2 K/mcL (4.5-11.0)
[2019-06-06] MEDS: METOPROLOL TARTRATE 5 MG/5 ML VIAL IV SCH (06:54)
[2019-06-06] MEDS: HYDROmorphone 2 MG/ML VIAL IV PRN ×2 (06:56→14:18)
[2019-06-06 08:01] LABS: ALT/SGPT 13 U/l (0-40); AST/SGOT 15 U/l (0-37); Albumin 3.2 gm/dL (3.2-5.2); Alkaline Phosphatase 129 U/L (39-117); Bilirubin,Direct < 0.2 mg/dL (0.0-0.3); Bilirubin,Total 0.5 mg/dL (0.0-1.0); Blood Urea Nitrogen 14 mg/dl (8-23); Calcium 9.4 mg/dl (8.6-10.4); Carbon Dioxide 24 mmol/L (22-30); Chloride 101 mmol/L (96-108); Globulin 3.3 gm/dL (2.2-3.7); Glomerular Filtration Rate 66; Glucose 124 mg/dL (70-105); Lactate Dehydrogenase 193 U/L (94-250); Phosphorous 4.4 mg/dL (2.7-4.5); Triglycerides 59 mg/dl (<150)
[2019-06-06 08:16] LABS: Band Neutrophils % 1 % (0-10); Lymphocytes % 7 % (15-49); Monocytes % (Manual) 1 % (1-12); Platelet Estimate NORMAL (NORMAL); RBC Morphology NORMAL (NORMAL); Segmented Neutrophils % 91 % (38-78)
[2019-06-06] MEDS: ENOXAPARIN 100 MG/ML SYRINGE SQ SCH (09:59)
--- NOTE | 2019-06-06 15:06 | Internal Med Progress Note ---
Medical - PN: Subj Patient information: Note initiated : 06/06/19 at 3:02 pm Service Date, if different from initiated Date: [] Patient: Jeremy Turner a 73 y/o M admitted on 06/05/19 for Abd Pain, Bowel Obstruction, Chrones Disease. Chief Complaint: [] Interval history: Mr. 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 Patient was sent to the ER for further evaluation where CT scan revealed stricture of the terminal ileum and partial small bowel obstruction. Patient was also found to have pyuria/elevated white count at 15,300. Patient received 1 dose of antibiotics after cultures were drawn. Subsequently hospitalist service was consulted. Patient was started on NG tube decompression. At the time evaluation patient is alert and oriented. He was able to answer most of the questions. He has had a similar episode in hospitalization recently which resolved after treatment with IV steroids with bowel obstruction resulting secondary to inflammation at the anastomosis site from underlying Crohn's. 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 His last dose was 4 weeks ago. Hospitalist service was consulted for admission. At the time of evaluation patient is alert and oriented. He was able to answer most questions. His symptoms started early in the morning with abdominal distention cramps and pain. He has not had a bowel movement in the last 24 hours. Symptoms were similar to the prior to presentation. Pain described as diffuse abdominal cramping 6 out of 10 to 8 out of 10 with associated nausea. 06/06-patient doing well. Had a bowel movement around 10 AM this morning. NG tube discontinued by GI. Recommend initiation of clears. On IV steroids/antibiotics for complicated UTI. Await culture sensitivities. No overnight fever chills. Abdominal pain much improved. NG output over 500 cc - Constitutional Vitals: Vital Signs Temp Pulse Resp BP Pulse Ox 98.3 F 89 18 108/66 97 06/06/19 08:00 06/06/19 04:24 06/06/19 08:00 06/06/19 08:00 06/06/19 08:00 Period Temp Pulse Resp BP Sys/Kirby Pulse Ox Last 24 Hr 97.6 F-98.6 F 83-91 16-20 108-136/66-85 95-100 Intake and Output 06/06/19 06/06/19 06/06/19 05:59 13:59 21:59 Intake Total 50 290 Output Total 750 75 Balance -700 215 Weight 170 lb 6.4 oz Patient Weight 06/07/19 05:59 Weight 170 lb 6.4 oz Intake & Output: Intake & Output 06/06/19 06/06/19 06/06/19 05:59 13:59 21:59 Intake Total 50 290 Output Total 750 75 Balance -700 215 Weight 170 lb 6.4 oz Intake: IV 50 50 Zosyn 3.375 gm In Dextrose 5% 50 50 in Water 50 ml @ 100 mls/hr IV Q6H [facility] Rx#:[id number] Oral 0 240 Output: Gastric Drainage 375 75 Right Nare 375 75 Void Amount 375 Other: Meal Breakfast Percent of Meal Consumed 75% Feeding Ability Independent Urine Appearance Cloudy Urine Color Dark Yellow Urine Odor Foul General appearance: no acute distress Exam: Alert oriented nonlabored breathing Chest clear Abdominal distention much improved No anxiety Medical - PN: Obj Da - Labs CBC & Chem 7: 06/06/19 05:05 06/06/19 05:05 Labs: Abnormal Lab Results 06/06/19 06/06/19 06/05/19 05:05 05:05 14:20 WBC RBC 4.48 L Hgb 12.6 L Hct 38.6 L POC Hct 35.0 L Gran % Lymph % (Auto) Gran # Lymph # (Auto) Seg Neutrophils % 91 H Lymphocytes % 7 L ESR Glucose 124 H GGT 67 H Alkaline Phosphatase 129 H C-Reactive Protein Urine Occult Blood Ur Leukocyte Esterase Urine RBC Urine WBC 06/05/19 06/05/19 06/05/19 14:00 13:58 13:43 WBC RBC Hgb Hct POC Hct Gran % Lymph % (Auto) Gran # Lymph # (Auto) Seg Neutrophils % Lymphocytes % ESR 61 H Glucose GGT Alkaline Phosphatase 130 H C-Reactive Protein 4.1 H Urine Occult Blood 0.2 A Ur Leukocyte Esterase 500 A Urine RBC 5 H Urine WBC 140 H 06/05/19 13:39 WBC 15.3 H RBC 4.41 L Hgb 12.3 L Hct 37.9 L POC Hct Gran % 83.9 H Lymph % (Auto) 9.1 L Gran # 12.9 H Lymph # (Auto) 1.4 L Seg Neutrophils % Lymphocytes % ESR Glucose GGT Alkaline Phosphatase C-Reactive Protein Urine Occult Blood Ur Leukocyte Esterase Urine RBC Urine WBC Meds: Medications Acetaminophen (Tylenol) 650 mg PO Q4-6HP PRN; Protocol PRN Reason: Per Pain Protocol/Fever > 101 Docusate Sodium (Colace) 100 mg PO BID [facility] Last Admin: 06/05/19 22:31 Dose: Not Given Documented by: Enoxaparin Sodium (Lovenox) 80 mg 1 mg/kg (80 mg) SQ Q12 [facility] Last Admin: 06/06/19 09:59 Dose: 80 mg Documented by: Hydralazine HCl (Apresoline) 10 mg IV Q4-6HP PRN PRN Reason: Hypertension Hydromorphone HCl (Dilaudid) 0 mg IV Q4HP PRN; Protocol PRN Reason: Per Pain Protocol Last Admin: 06/06/19 14:18 Dose: 0.5 mg Documented by: Sodium Chloride (Sodium Chloride 0.9%) 1,000 mls @ 50 mls/hr IV .Q20H [facility] Stop: 06/08/19 04:49 Last Admin: 06/05/19 20:05 Dose: 50 mls/hr Documented by: Acetaminophen (Ofirmev) 650 mg in 65 mls @ 130 mls/hr IV Q6HP PRN; Protocol PRN Reason: Per Pain Protocol/Fever > 101 Magnesium Sulfate (Magnesium Sulfate) 2 gm in 50 mls @ 50 mls/hr IV UD PRN PRN Reason: MG = or < 1.7 Piperacillin Sod/Tazobactam (Sod 3.375 gm/ Dextrose) 50 mls @ 100 mls/hr IV Q6H [facility]; Protocol Last Admin: 06/06/19 12:04 Dose: 100 mls/hr Documented by: Mercaptopurine (Mercaptopurine) 50 mg PO QAM [facility] Methylprednisolone Sodium Succinate (Solu-Medrol) 20 mg IV Q12 [facility] Last Admin: 06/06/19 09:58 Dose: 20 mg Documented by: Ondansetron HCl (Zofran) 4 mg IV Q4-6HP PRN; Protocol PRN Reason: Nausea And Vomiting Potassium Chloride (Klor-Con) 40 meq PO DAILYP PRN PRN Reason: K+ < 3.5 Senna/Docusate Sodium (Senna Plus Tablet) 1 tab PO HS [facility] Last Admin: 06/05/19 22:32 Dose: Not Given Documented by: Sodium Chloride (Saline Flush) 10 ml IV Q8 [facility] Last Admin: 06/06/19 05:56 Dose: Not Given Documented by: Throat Lozenges (Cepacol) 1 lozenge PO PRN PRN PRN Reason: Sore Throat Medical - PN: A/P - Time Spent With Patient Total time spent is greater than 50% in coordination of care (as documented) at patient's floor/unit and/or counseling patient: 25 - 35 minutes (1) Partial small bowel obstruction Status: Acute Assessment and plan: * Partial small bowel obstruction secondary to acute Crohn's flare. Resolved with NG decompression. GI recommends initiating clears. On IV steroids. * Acute Crohn's flare-on IV steroids as per GI * Complicated UTI-continue antibiotic coverage and de-escalate based on sensitivities * Early sepsis secondary to above. Clinically improved. White count 15.3-> 9.2 * History of ankylosing spondylitis-patient follows up with Dr. Dao. Has been on Remicade every 6 weeks. On chronic prednisone * Proximal atrial fibrillation currently on anticoagulation, rate controlled. 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
--- NOTE | 2019-06-06 15:26 | Internal Med Progress Note ---
Medical - PN: Subj Patient information: Note initiated : 06/06/19 at 3:23 pm Service Date, if different from initiated Date: [] Patient: Jeremy Turner 73 y/o M admitted on 06/05/19 for Abd Pain, Bowel Obstruction, Chron's Disease. Chief Complaint: [partial small bowel obstruction secondary Crohn's] Interval history: 74 year old white male with Crohn's who is hospitalized for partial small bowel obstruction. He has had dramatic improvement on NGT to suction and passed flatus last night and had a small bowel movement this morning. He is eager to DC his tube. He has been afebrile. Leukocytosis has improved. - Constitutional Vitals: Vital Signs Temp Pulse Resp BP Pulse Ox 98.3 F 89 18 108/66 97 06/06/19 08:00 06/06/19 04:24 06/06/19 08:00 06/06/19 08:00 06/06/19 08:00 Period Temp Pulse Resp BP Sys/Kirby Pulse Ox Last 24 Hr 97.6 F-98.6 F 83-91 16-20 108-136/66-85 95-99 Intake and Output 06/06/19 06/06/19 06/06/19 05:59 13:59 21:59 Intake Total 50 290 Output Total 750 75 Balance -700 215 Weight 170 lb 6.4 oz Patient Weight 06/07/19 05:59 Weight 170 lb 6.4 oz Intake & Output: Intake & Output 06/06/19 06/06/19 06/06/19 05:59 13:59 21:59 Intake Total 50 290 Output Total 750 75 Balance -700 215 Weight 170 lb 6.4 oz Intake: IV 50 50 Zosyn 3.375 gm In Dextrose 5% 50 50 in Water 50 ml @ 100 mls/hr IV Q6H [facility] Rx#:[id number] Oral 0 240 Output: Gastric Drainage 375 75 Right Nare 375 75 Void Amount 375 Other: Meal Breakfast Percent of Meal Consumed 75% Feeding Ability Independent Urine Appearance Cloudy Urine Color Dark Yellow Urine Odor Foul General appearance: average body habitus, cooperative, no acute distress - Head Head exam: Present: atraumatic, normal inspection, normocephalic - ENT ENT exam: Present: normal exam - Respiratory Respiratory exam: Present: normal respiratory exam, CTAB - Cardiovascular Cardiovascular exam: Present: normal rate and rhythm. Absent: gallop, systolic murmur - GI/Abdominal GI/Abdominal exam: Present: normal bowel sounds, soft. Absent: guarding, organomegaly - Psychiatric Psychiatric exam: Present: normal affect, normal mood - Skin Skin exam: Present: dry, warm Medical - PN: Obj Da - Labs CBC & Chem 7: 06/06/19 05:05 06/06/19 05:05 Labs: Abnormal Lab Results 06/06/19 06/06/19 06/05/19 05:05 05:05 14:20 WBC RBC 4.48 L Hgb 12.6 L Hct 38.6 L POC Hct 35.0 L Gran % Lymph % (Auto) Gran # Lymph # (Auto) Seg Neutrophils % 91 H Lymphocytes % 7 L ESR Glucose 124 H GGT 67 H Alkaline Phosphatase 129 H C-Reactive Protein Urine Occult Blood Ur Leukocyte Esterase Urine RBC Urine WBC 06/05/19 06/05/19 06/05/19 14:00 13:58 13:43 WBC RBC Hgb Hct POC Hct Gran % Lymph % (Auto) Gran # Lymph # (Auto) Seg Neutrophils % Lymphocytes % ESR 61 H Glucose GGT Alkaline Phosphatase 130 H C-Reactive Protein 4.1 H Urine Occult Blood 0.2 A Ur Leukocyte Esterase 500 A Urine RBC 5 H Urine WBC 140 H 06/05/19 13:39 WBC 15.3 H RBC 4.41 L Hgb 12.3 L Hct 37.9 L POC Hct Gran % 83.9 H Lymph % (Auto) 9.1 L Gran # 12.9 H Lymph # (Auto) 1.4 L Seg Neutrophils % Lymphocytes % ESR Glucose GGT Alkaline Phosphatase C-Reactive Protein Urine Occult Blood Ur Leukocyte Esterase Urine RBC Urine WBC Meds: Medications Acetaminophen (Tylenol) 650 mg PO Q4-6HP PRN; Protocol PRN Reason: Per Pain Protocol/Fever > 101 Docusate Sodium (Colace) 100 mg PO BID [facility] Last Admin: 06/05/19 22:31 Dose: Not Given Documented by: Enoxaparin Sodium (Lovenox) 80 mg 1 mg/kg (80 mg) SQ Q12 [facility] Last Admin: 06/06/19 09:59 Dose: 80 mg Documented by: Furosemide (Lasix) 20 mg PO DAILY [facility] Hydralazine HCl (Apresoline) 10 mg IV Q4-6HP PRN PRN Reason: Hypertension Hydromorphone HCl (Dilaudid) 0 mg IV Q4HP PRN; Protocol PRN Reason: Per Pain Protocol Last Admin: 06/06/19 14:18 Dose: 0.5 mg Documented by: Sodium Chloride (Sodium Chloride 0.9%) 1,000 mls @ 50 mls/hr IV .Q20H [facility] Stop: 06/08/19 04:49 Last Admin: 06/05/19 20:05 Dose: 50 mls/hr Documented by: Acetaminophen (Ofirmev) 650 mg in 65 mls @ 130 mls/hr IV Q6HP PRN; Protocol PRN Reason: Per Pain Protocol/Fever > 101 Magnesium Sulfate (Magnesium Sulfate) 2 gm in 50 mls @ 50 mls/hr IV UD PRN PRN Reason: MG = or < 1.7 Piperacillin Sod/Tazobactam (Sod 3.375 gm/ Dextrose) 50 mls @ 100 mls/hr IV Q6H [facility]; Protocol Last Admin: 06/06/19 12:04 Dose: 100 mls/hr Documented by: Mercaptopurine (Mercaptopurine) 50 mg PO QAM [facility] Methylprednisolone Sodium Succinate (Solu-Medrol) 20 mg IV Q12 [facility] Last Admin: 06/06/19 09:58 Dose: 20 mg Documented by: Non-Formulary Medication (Potassium Chloride [Klor-Con 8]) 8 meq PO BID [facility] Omeprazole (Prilosec) 20 mg PO DAILY [facility] Ondansetron HCl (Zofran) 4 mg IV Q4-6HP PRN; Protocol PRN Reason: Nausea And Vomiting Potassium Chloride (Klor-Con) 40 meq PO DAILYP PRN PRN Reason: K+ < 3.5 Ramipril (Altace) 5 mg PO QDAY [facility] Rivaroxaban (Xarelto) 20 mg PO QDAY [facility] Senna/Docusate Sodium (Senna Plus Tablet) 1 tab PO HS [facility] Last Admin: 06/05/19 22:32 Dose: Not Given Documented by: Sodium Chloride (Saline Flush) 10 ml IV Q8 [facility] Last Admin: 06/06/19 05:56 Dose: Not Given Documented by: Throat Lozenges (Cepacol) 1 lozenge PO PRN PRN PRN Reason: Sore Throat Medical - PN: A/P - Time Spent With Patient Total time spent is greater than 50% in coordination of care (as documented) at patient's floor/unit and/or counseling patient: less than 15 minutes (1) Crohn disease Status: Acute Current Visit: Yes (2) Partial small bowel obstruction Status: Acute Assessment and plan: Discussed case with Dr. Patton. Will DC NGT and try clear liquids. He understa nds that if symptoms recur, we may to reinsert NGT. If he continues to progress well, we will gradually advance to low residue diet and oral prednisone with plan to perform colonoscopy with possible balloon dilatation of ileal stricture at that time. Current Visit: Yes Medical - PN: Qual - VTE Deep Vein Thrombosis/Pulmonary Embolism Present on Admission: No
[2019-06-06] MEDS: MERCAPTOPURINE 50 MG TABLET PO SCH (16:05)
[2019-06-06] MEDS: DOCUSATE SODIUM 100 MG CAPSULE PO SCH ×2 (16:05→20:51)
[2019-06-06] MEDS: 0.9 % SODIUM CHLORIDE 1,000 ML IV SCH (17:34)
[2019-06-06] MEDS: RIVAROXABAN 20 MG TABLET PO SCH (18:40)
[2019-06-06] MEDS: POTASSIUM CHLORIDE 10 MEQ TABLET PO SCH (18:41)
[2019-06-06] MEDS: SENNOSIDES/DOCUSATE SODIUM 1 TAB TABLET PO SCH (20:51)
[2019-06-07] MEDS: PIPERACILLIN SODIUM/TAZOBACTAM 3.375 GM in DEXTROSE 5% IN WATER 50 ML IV SCH ×4 (05:31→23:48)
[2019-06-07] MEDS: 0.9 % SODIUM CHLORIDE 10 ML SYRINGE IV SCH ×3 (05:33→20:28)
[2019-06-07 05:35] LABS: Hemoglobin 11.3 g/dL (13.5-16.5); Mean Cell Volume 86.2 fL (80.0-100.0); Mean Corpuscular HGB Conc 33.2 g/dL (31.0-36.0); Mean Platelet Volume 8.2 fL (7.4-10.4); Platelet Count 311 K/mcL (140-440); RBC 3.94 M/mcL (4.50-5.90); WBC 11.4 K/mcL (4.5-11.0)
[2019-06-07 05:57] LABS: ALT/SGPT 16 U/l (0-40); AST/SGOT 17 U/l (0-37); Alkaline Phosphatase 106 U/L (39-117); Bilirubin,Direct < 0.2 mg/dL (0.0-0.3); Bilirubin,Total 0.3 mg/dL (0.0-1.0); Blood Urea Nitrogen 17 mg/dl (8-23); Calcium 8.9 mg/dl (8.6-10.4); Carbon Dioxide 27 mmol/L (22-30); Chloride 104 mmol/L (96-108); Globulin 2.9 gm/dL (2.2-3.7); Glomerular Filtration Rate 74; Glucose 139 mg/dL (70-105); Lactate Dehydrogenase 155 U/L (94-250); Phosphorous 3.6 mg/dL (2.7-4.5); Triglycerides 78 mg/dl (<150); Uric Acid 4.8 mg/dL (2.5-8.0)
[2019-06-07 06:51] LABS: Band Neutrophils % 2 % (0-10); Lymphocytes % 5 % (15-49); Monocytes % (Manual) 3 % (1-12); Platelet Estimate NORMAL (NORMAL); RBC Morphology NORMAL (NORMAL); Segmented Neutrophils % 90 % (38-78)
[2019-06-07] MEDS: POTASSIUM CHLORIDE 10 MEQ TABLET PO SCH ×2 (07:56→17:19)
[2019-06-07] MEDS: DOCUSATE SODIUM 100 MG CAPSULE PO SCH ×2 (07:58→20:27)
[2019-06-07] MEDS: OMEPRAZOLE 20 MG CAPSULE PO SCH (07:58)
[2019-06-07] MEDS: LISINOPRIL 10 MG TABLET PO SCH (07:58)
[2019-06-07] MEDS: FUROSEMIDE 20 MG TABLET PO SCH (07:58)
[2019-06-07] MEDS: methylPREDNISolone SOD SUCC 40 MG/ML VIAL IV SCH ×2 (07:59→20:28)
[2019-06-07] MEDS: MERCAPTOPURINE 50 MG TABLET PO SCH (10:47)
[2019-06-07] MEDS: 0.9 % SODIUM CHLORIDE 1,000 ML IV SCH (10:47)
--- NOTE | 2019-06-07 12:36 | Internal Med Progress Note ---
Medical - PN: Subj Patient information: Note initiated : 06/07/19 at 12:32 pm Service Date, if different from initiated Date: [] Patient: Jeremy Turner a 73 y/o M admitted on 06/05/19 for Abd Pain, Bowel Obstruction, Chrones Disease. Chief Complaint: [] Interval history: Mr. 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 Patient was sent to the ER for further evaluation where CT scan revealed stricture of the terminal ileum and partial small bowel obstruction. Patient was also found to have pyuria/elevated white count at 15,300. Patient received 1 dose of antibiotics after cultures were drawn. Subsequently hospitalist service was consulted. Patient was started on NG tube decompression. At the time evaluation patient is alert and oriented. He was able to answer most of the questions. He has had a similar episode in hospitalization recently which resolved after treatment with IV steroids with bowel obstruction resulting secondary to inflammation at the anastomosis site from underlying Crohn's. 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 His last dose was 4 weeks ago. Hospitalist service was consulted for admission. At the time of evaluation patient is alert and oriented. He was able to answer most questions. His symptoms started early in the morning with abdominal distention cramps and pain. He has not had a bowel movement in the last 24 hours. Symptoms were similar to the prior to presentation. Pain described as diffuse abdominal cramping 6 out of 10 to 8 out of 10 with associated nausea. 06/06-patient doing well. Had a bowel movement around 10 AM this morning. NG tube discontinued by GI. Recommend initiation of clears. On IV steroids/antibiotics for complicated UTI. Await culture sensitivities. No overnight fever chills. Abdominal pain much improved. NG output over 500 cc 06/07-patient had 2 bowel movements today. Doing well. Denies abdominal pain. Tolerating clears and advancing diet as per GI. Will likely discharge in 24 hours pending clinical improvement. Continuing steroids as per GI recommendations. Feels upbeat. No overnight pain fever or distention - Constitutional Vitals: Vital Signs Temp Pulse Resp BP Pulse Ox 98 F 72 20 123/72 100 06/07/19 11:56 06/07/19 04:25 06/07/19 11:56 06/07/19 11:56 06/07/19 11:56 Period Temp Pulse Resp BP Sys/Kirby Pulse Ox Last 24 Hr 97.4 F-98.9 F 72-94 16-20 107-138/64-79 96-100 Intake and Output 06/06/19 06/07/19 06/07/19 21:59 05:59 13:59 Intake Total 1890 990 50 Output Total 450 400 150 Balance 1440 590 -100 Weight 169 lb 9.6 oz Intake & Output: Intake & Output 06/06/19 06/07/19 06/07/19 21:59 05:59 13:59 Intake Total 1890 990 50 Output Total 450 400 150 Balance 1440 590 -100 Weight 169 lb 9.6 oz Intake: IV 1050 50 50 Sodium Chloride 0.9% 1,000 ml @ 1000 50 mls/hr IV .Q20H [facility] Rx#: [id number] Zosyn 3.375 gm In Dextrose 5% 50 50 50 in Water 50 ml @ 100 mls/hr IV Q6H [facility] Rx#:[id number] Oral 840 940 Output: Gastric Drainage 350 Right Nare 350 Urine Catheter Amount 100 Void Amount 400 150 Other: Meal Dinner Percent of Meal Consumed 100% Urine Appearance Clear Clear Urine Color Pale Bright Yellow Urine Odor Normal Stool Size Small Small Stool Color Brown Brown Black Stool Consistency Loose Loose # Voids 1 # Bowel Movements 1 1 General appearance: no acute distress Exam: Alert oriented Nontender nondistended abdomen Nonlabored breathing No anxiety or agitation Medical - PN: Obj Da - Labs CBC & Chem 7: 06/07/19 04:15 06/07/19 04:15 Labs: Abnormal Lab Results 06/07/19 06/07/19 06/06/19 04:15 04:15 05:05 WBC 11.4 H RBC 3.94 L Hgb 11.3 L Hct 34.0 L POC Hct Gran % Lymph % (Auto) Gran # Lymph # (Auto) Seg Neutrophils % 90 H Lymphocytes % 5 L ESR Glucose 139 H 124 H GGT 67 H Alkaline Phosphatase 129 H C-Reactive Protein Albumin 3.0 L Urine Occult Blood Ur Leukocyte Esterase Urine RBC Urine WBC 06/06/19 06/05/1919 05:05 14:20 14:00 WBC RBC 4.48 L Hgb 12.6 L Hct 38.6 L POC Hct 35.0 L Gran % Lymph % (Auto) Gran # Lymph # (Auto) Seg Neutrophils % 91 H Lymphocytes % 7 L ESR Glucose GGT Alkaline Phosphatase C-Reactive Protein Albumin Urine Occult Blood 0.2 A Ur Leukocyte Esterase 500 A Urine RBC 5 H Urine WBC 140 H 06/05/19 06/05/19 06/05/19 13:58 13:43 13:39 WBC 15.3 H RBC 4.41 L Hgb 12.3 L Hct 37.9 L POC Hct Gran % 83.9 H Lymph % (Auto) 9.1 L Gran # 12.9 H Lymph # (Auto) 1.4 L Seg Neutrophils % Lymphocytes % ESR 61 H Glucose GGT Alkaline Phosphatase 130 H C-Reactive Protein 4.1 H Albumin Urine Occult Blood Ur Leukocyte Esterase Urine RBC Urine WBC Meds: Medications Acetaminophen (Tylenol) 650 mg PO Q4-6HP PRN; Protocol PRN Reason: Per Pain Protocol/Fever > 101 Docusate Sodium (Colace) 100 mg PO BID [facility] Last Admin: 06/07/19 07:58 Dose: 100 mg Documented by: Furosemide (Lasix) 20 mg PO DAILY [facility] Last Admin: 06/07/19 07:58 Dose: 20 mg Documented by: Hydralazine HCl (Apresoline) 10 mg IV Q4-6HP PRN PRN Reason: Hypertension Hydromorphone HCl (Dilaudid) 0 mg IV Q4HP PRN; Protocol PRN Reason: Per Pain Protocol Last Admin: 06/06/19 14:18 Dose: 0.5 mg Documented by: Sodium Chloride (Sodium Chloride 0.9%) 1,000 mls @ 50 mls/hr IV .Q20H [facility] Stop: 06/08/19 04:49 Last Admin: 06/07/19 10:47 Dose: Not Given Documented by: Acetaminophen (Ofirmev) 650 mg in 65 mls @ 130 mls/hr IV Q6HP PRN; Protocol PRN Reason: Per Pain Protocol/Fever > 101 Magnesium Sulfate (Magnesium Sulfate) 2 gm in 50 mls @ 50 mls/hr IV UD PRN PRN Reason: MG = or < 1.7 Piperacillin Sod/Tazobactam (Sod 3.375 gm/ Dextrose) 50 mls @ 100 mls/hr IV Q6H [facility]; Protocol Last Admin: 06/07/19 11:27 Dose: 100 mls/hr Documented by: Lisinopril (Zestril) 10 mg PO DAILY [facility] Last Admin: 06/07/19 07:58 Dose: 10 mg Documented by: Mercaptopurine (Mercaptopurine) 50 mg PO QAM [facility] Last Admin: 06/07/19 10:47 Dose: 50 mg Documented by: Methylprednisolone Sodium Succinate (Solu-Medrol) 20 mg IV Q12 [facility] Last Admin: 06/07/19 07:59 Dose: 20 mg Documented by: Omeprazole (Prilosec) 20 mg PO DAILY [facility] Last Admin: 06/07/19 07:58 Dose: 20 mg Documented by: Ondansetron HCl (Zofran) 4 mg IV Q4-6HP PRN; Protocol PRN Reason: Nausea And Vomiting Potassium Chloride (Klor-Con) 40 meq PO DAILYP PRN PRN Reason: K+ < 3.5 Potassium Chloride (Kdur) 10 meq PO BIDCC [facility] Last Admin: 06/07/19 07:56 Dose: 10 meq Documented by: Rivaroxaban (Xarelto) 20 mg PO QPMCC [facility] Last Admin: 06/06/19 18:40 Dose: 20 mg Documented by: Senna/Docusate Sodium (Senna Plus Tablet) 1 tab PO HS [facility] Last Admin: 06/06/19 20:51 Dose: 1 tab Documented by: Sodium Chloride (Saline Flush) 10 ml IV Q8 [facility] Last Admin: 06/07/19 05:33 Dose: Not Given Documented by: Throat Lozenges (Cepacol) 1 lozenge PO PRN PRN PRN Reason: Sore Throat Medical - PN: A/P - Time Spent With Patient Total time spent is greater than 50% in coordination of care (as documented) at patient's floor/unit and/or counseling patient: 15 - 24 minutes (1) Partial small bowel obstruction Status: Acute Assessment and plan: * Partial small bowel obstruction secondary to acute Crohn's flare. Clinically improved. Now tolerating clears. 2 bowel movements today. On IV steroids as per GI for acute Crohn's flare leading to anastomotic site inflammation with bowel obstruction * Acute Crohn's flare-on steroids and mercaptopurine as per GI * Complicated [id number] antibiotics in 24 hours * Early sepsis secondary to above. Clinically resolved white count 15.3-> 11.4 * History of ankylosing spondylitis-patient follows up with Dr. Dao. Has been on Remicade every 6 weeks. * Proximal atrial fibrillation currently on anticoagulation, rate controlled. * History of embolic CVA currently anticoagulation * History of hypertension on LEONOR inhibitors * GERD continue PPI * Full code Plan * Continue Crohn's flare management per GI * Advance diet as tolerated to soft followed by a low residue per GI * De-escalate antibiotics in 24 hours * Pre-existing medical condition management restart home meds * Discharge likely in 24 hours pending clinical improvement Current Visit: Yes Medical - PN: Qual - VTE Deep Vein Thrombosis/Pulmonary Embolism Present on Admission: No
--- NOTE | 2019-06-07 12:57 | Internal Med Progress Note ---
Medical - PN: Subj Patient information: Note initiated : 06/07/19 at 12:57 pm Service Date, if different from initiated Date: [] Patient: Jeremy Turner 73 y/o M admitted on 06/05/19 for Abd Pain, Bowel Obstruction, Chrones Disease. Chief Complaint: [] - Constitutional Vitals: Vital Signs Temp Pulse Resp BP Pulse Ox 98 F 72 20 123/72 100 06/07/19 11:56 06/07/19 04:25 06/07/19 11:56 06/07/19 11:56 06/07/19 11:56 Period Temp Pulse Resp BP Sys/Kirby Pulse Ox Last 24 Hr 97.4 F-98.9 F 72-94 16-20 107-138/64-79 96-100 Intake and Output 06/06/19 06/07/19 06/07/19 21:59 05:59 13:59 Intake Total 1890 990 50 Output Total 450 400 150 Balance 1440 590 -100 Weight 169 lb 9.6 oz Intake & Output: Intake & Output 06/06/19 06/07/19 06/07/19 21:59 05:59 13:59 Intake Total 1890 990 50 Output Total 450 400 150 Balance 1440 590 -100 Weight 169 lb 9.6 oz Intake: IV 1050 50 50 Sodium Chloride 0.9% 1,000 ml @ 1000 50 mls/hr IV .Q20H [facility] Rx#: [id number] Zosyn 3.375 gm In Dextrose 5% 50 50 50 in Water 50 ml @ 100 mls/hr IV Q6H [facility] Rx#:[id number] Oral 840 940 Output: Gastric Drainage 350 Right Nare 350 Urine Catheter Amount 100 Void Amount 400 150 Other: Meal Dinner Percent of Meal Consumed 100% Urine Appearance Clear Clear Urine Color Pale Bright Yellow Urine Odor Normal Stool Size Small Small Stool Color Brown Brown Black Stool Consistency Loose Loose # Voids 1 # Bowel Movements 1 1 Medical - PN: Obj Da - Labs CBC & Chem 7: 06/07/19 04:15 06/07/19 04:15 Labs: Abnormal Lab Results 06/07/19 06/07/19 06/06/19 04:15 04:15 05:05 WBC 11.4 H RBC 3.94 L Hgb 11.3 L Hct 34.0 L POC Hct Gran % Lymph % (Auto) Gran # Lymph # (Auto) Seg Neutrophils % 90 H Lymphocytes % 5 L ESR Glucose 139 H 124 H GGT 67 H Alkaline Phosphatase 129 H C-Reactive Protein Albumin 3.0 L Urine Occult Blood Ur Leukocyte Esterase Urine RBC Urine WBC 06/06/19 06/05/19 06/05/19 05:05 14:20 14:00 WBC RBC 4.48 L Hgb 12.6 L Hct 38.6 L POC Hct 35.0 L Gran % Lymph % (Auto) Gran # Lymph # (Auto) Seg Neutrophils % 91 H Lymphocytes % 7 L ESR Glucose GGT Alkaline Phosphatase C-Reactive Protein Albumin Urine Occult Blood 0.2 A Ur Leukocyte Esterase 500 A Urine RBC 5 H Urine WBC 140 H 06/05/19 06/05/19 06/05/19 13:58 13:43 13:39 WBC 15.3 H RBC 4.41 L Hgb 12.3 L Hct 37.9 L POC Hct Gran % 83.9 H Lymph % (Auto) 9.1 L Gran # 12.9 H Lymph # (Auto) 1.4 L Seg Neutrophils % Lymphocytes % ESR 61 H Glucose GGT Alkaline Phosphatase 130 H C-Reactive Protein 4.1 H Albumin Urine Occult Blood Ur Leukocyte Esterase Urine RBC Urine WBC Meds: Medications Acetaminophen (Tylenol) 650 mg PO Q4-6HP PRN; Protocol PRN Reason: Per Pain Protocol/Fever > 101 Docusate Sodium (Colace) 100 mg PO BID [facility] Last Admin: 06/07/19 07:58 Dose: 100 mg Documented by: Furosemide (Lasix) 20 mg PO DAILY [facility] Last Admin: 06/07/19 07:58 Dose: 20 mg Documented by: Hydralazine HCl (Apresoline) 10 mg IV Q4-6HP PRN PRN Reason: Hypertension Hydromorphone HCl (Dilaudid) 0 mg IV Q4HP PRN; Protocol PRN Reason: Per Pain Protocol Last Admin: 06/06/19 14:18 Dose: 0.5 mg Documented by: Sodium Chloride (Sodium Chloride 0.9%) 1,000 mls @ 50 mls/hr IV .Q20H [facility] Stop: 06/08/19 04:49 Last Admin: 06/07/19 10:47 Dose: Not Given Documented by: Acetaminophen (Ofirmev) 650 mg in 65 mls @ 130 mls/hr IV Q6HP PRN; Protocol PRN Reason: Per Pain Protocol/Fever > 101 Magnesium Sulfate (Magnesium Sulfate) 2 gm in 50 mls @ 50 mls/hr IV UD PRN PRN Reason: MG = or < 1.7 Piperacillin Sod/Tazobactam (Sod 3.375 gm/ Dextrose) 50 mls @ 100 mls/hr IV Q6H [facility]; Protocol Last Admin: 06/07/19 11:27 Dose: 100 mls/hr Documented by: Lisinopril (Zestril) 10 mg PO DAILY [facility] Last Admin: 06/07/19 07:58 Dose: 10 mg Documented by: Mercaptopurine (Mercaptopurine) 50 mg PO QAM [facility] Last Admin: 06/07/19 10:47 Dose: 50 mg Documented by: Methylprednisolone Sodium Succinate (Solu-Medrol) 20 mg IV Q12 [facility] Last Admin: 06/07/19 07:59 Dose: 20 mg Documented by: Omeprazole (Prilosec) 20 mg PO DAILY [facility] Last Admin: 06/07/19 07:58 Dose: 20 mg Documented by: Ondansetron HCl (Zofran) 4 mg IV Q4-6HP PRN; Protocol PRN Reason: Nausea And Vomiting Potassium Chloride (Klor-Con) 40 meq PO DAILYP PRN PRN Reason: K+ < 3.5 Potassium Chloride (Kdur) 10 meq PO BIDCC [facility] Last Admin: 06/07/19 07:56 Dose: 10 meq Documented by: Rivaroxaban (Xarelto) 20 mg PO QPMCC [facility] Last Admin: 06/06/19 18:40 Dose: 20 mg Documented by: Senna/Docusate Sodium (Senna Plus Tablet) 1 tab PO HS [facility] Last Admin: 06/06/19 20:51 Dose: 1 tab Documented by: Sodium Chloride (Saline Flush) 10 ml IV Q8 [facility] Last Admin: 06/07/19 05:33 Dose: Not Given Documented by: Throat Lozenges (Cepacol) 1 lozenge PO PRN PRN PRN Reason: Sore Throat Medical - PN: A/P - Time Spent With Patient Total time spent is greater than 50% in coordination of care (as documented) at patient's floor/unit and/or counseling patient: (1) Partial small bowel obstruction Status: Acute Assessment and plan: * Partial small bowel obstruction secondary to acute Crohn's flare. Clinically improved. Now tolerating clears. 2 bowel movements today. On IV steroids as per GI for acute Crohn's flare leading to anastomotic site inflammation with bowel obstruction * Acute Crohn's flare-on steroids and mercaptopurine as per GI * Complicated [id number] antibiotics in 24 hours * Early sepsis secondary to above. Clinically resolved white count 15.3-> 11.4 * History of ankylosing spondylitis-patient follows up with Dr. Dao. Has been on Remicade every 6 weeks. * Proximal atrial fibrillation currently on anticoagulation, rate controlled. * History of embolic CVA currently anticoagulation * History of hypertension on LEONOR inhibitors * GERD continue PPI * Full code Plan * Continue Crohn's flare management per GI * Advance diet as tolerated to soft followed by a low residue per GI * De-escalate antibiotics in 24 hours * Pre-existing medical condition management restart home meds * Discharge likely in 24 hours pending clinical improvement Current Visit: Yes Medical - PN: Qual - VTE Deep Vein Thrombosis/Pulmonary Embolism Present on Admission: No
[2019-06-07] MEDS: RIVAROXABAN 20 MG TABLET PO SCH (17:19)
[2019-06-07] MEDS: SENNOSIDES/DOCUSATE SODIUM 1 TAB TABLET PO SCH (20:27)
[2019-06-08] MEDS: 0.9 % SODIUM CHLORIDE 10 ML SYRINGE IV SCH (05:57)
[2019-06-08] MEDS: PIPERACILLIN SODIUM/TAZOBACTAM 3.375 GM in DEXTROSE 5% IN WATER 50 ML IV SCH (05:57)
[2019-06-08 06:22] LABS: Hematocrit 33.2 % (41.0-55.0); Hemoglobin 10.9 g/dL (13.5-16.5); Mean Cell Volume 86.6 fL (80.0-100.0); Mean Corpuscular HGB Conc 32.9 g/dL (31.0-36.0); Mean Platelet Volume 8.2 fL (7.4-10.4); Platelet Count 326 K/mcL (140-440); RBC 3.84 M/mcL (4.50-5.90); Red Cell Distribution Width 14.1 % (11.5-14.5); WBC 11.9 K/mcL (4.5-11.0)
[2019-06-08 06:43] LABS: ALT/SGPT 22 U/l (0-40); AST/SGOT 23 U/l (0-37); Albumin 3.2 gm/dL (3.2-5.2); Albumin/Globulin Ratio 1.2 (1.0-2.3); Alkaline Phosphatase 93 U/L (39-117); Bilirubin,Direct < 0.2 mg/dL (0.0-0.3); Bilirubin,Total 0.2 mg/dL (0.0-1.0); Blood Urea Nitrogen 13 mg/dl (8-23); Calcium 9.1 mg/dl (8.6-10.4); Carbon Dioxide 28 mmol/L (22-30); Chloride 103 mmol/L (96-108); Globulin 2.6 gm/dL (2.2-3.7); Glomerular Filtration Rate 74; Glucose 125 mg/dL (70-105); Lactate Dehydrogenase 181 U/L (94-250); Phosphorous 3.2 mg/dL (2.7-4.5); Triglycerides 98 mg/dl (<150)
[2019-06-08] MEDS: OMEPRAZOLE 20 MG CAPSULE PO SCH (08:19)
[2019-06-08] MEDS: methylPREDNISolone SOD SUCC 40 MG/ML VIAL IV SCH (08:19)
[2019-06-08] MEDS: LISINOPRIL 10 MG TABLET PO SCH (08:19)
[2019-06-08] MEDS: POTASSIUM CHLORIDE 10 MEQ TABLET PO SCH (08:19)
[2019-06-08] MEDS: FUROSEMIDE 20 MG TABLET PO SCH (08:19)
[2019-06-08] MEDS: MERCAPTOPURINE 50 MG TABLET PO SCH (08:20)
[2019-06-08] MEDS: DOCUSATE SODIUM 100 MG CAPSULE PO SCH (08:21)
[2019-06-08 08:48] LABS: Lymphocytes % 9 % (15-49); Monocytes % (Manual) 2 % (1-12); Platelet Estimate NORMAL (NORMAL); RBC Morphology NORMAL (NORMAL); Segmented Neutrophils % 89 % (38-78)
--- NOTE | 2019-06-08 09:34 | Discharge Summary ---
Medical - DS: Prov Patient information: Note initiated : 06/08/19 at 9:30 am Service Date, if different from initiated Date: [] Patient: Jeremy Turner 73 y/o M admitted on 06/05/19 for Abd Pain, Bowel Obstruction, Chrones Disease. Chief Complaint: [] Date of admission: 06/05/19 16:44 Discharge date: 06/08/19 Primary care physician: Catalino Londono Consults: 06/05/19 Consult to Physician [CONS] Stat Comment: Consulting Provider: Scooby Quan Reason For Exam: Physician to Consult Consult to Physician [CONS] Stat Comment: Consulting Provider: Mirtha Mayes Reason For Exam: Physician to Consult Consult to Physician [CONS] Stat Comment: Consulting Provider: Kiko Grace Reason For Exam: Physician to Consult Medical - DS: Meds - Discharge Medications Prescriptions: Amoxicillin/Potassium Clav [Augmentin] 875 mg PO Q12H #6 tab Transmission Status: Pending to [facility] 2005 predniSONE [Deltasone] 40 mg PO DAILY #20 tab Transmission Status: Pending to [facility] 2005 Active and Home Medications: Home Medications ramipril 5 mg capsule 5 mg PO QDAY cap 03/12/15 [History Confirmed 06/05/19 Last Taken 06/04/19] omeprazole 20 mg capsule,delayed release 20 mg PO DAILY #90 cap 08/16/18 [History Confirmed 06/05/19 Last Taken 05/29/19] rivaroxaban 20 mg tablet 20 mg PO QDAY 08/16/18 [History Confirmed 06/05/19 Last Taken 06/04/19] Famotidine/Ca Carb/Mag Hydrox [Pepcid Complete Tablet Chew] 1 each PO BID PRN 06/05/19 [History Confirmed 06/05/19 Last Taken 06/04/19] Furosemide [Lasix] 20 mg PO DAILY 06/05/19 [History Confirmed 06/05/19 Last Taken 06/05/19] Potassium Chloride [Klor-Con 8] 8 meq PO BID 06/05/19 [History Confirmed 06/05/19 Last Taken 06/05/19] Amoxicillin/Potassium Clav [Augmentin] 875 mg PO Q12H #6 tab 06/08/19 [Rx Last Taken Unknown] Mercaptopurine 50 mg PO QAM tablet 06/08/19 [Rx Last Taken Unknown] predniSONE [Deltasone] 40 mg PO DAILY #20 tab 06/08/19 [Rx Last Taken Unknown] Medical - DS: Hosp Hospital Course: Discharge diagnosis * Partial small bowel obstruction secondary to acute Crohn's flare. Clinically resolved. Tolerating low residuediet. Large bowel movements today. Per GI continue low residue diet/prednisone 40. We will follow-up with Mirtha Mayes early next week. * Acute Crohn's flare-on oral prednisone and mercaptopurine as per GI * Complicated UTI-negative cultures. Continue additional 3 days Augmentin. Repeat UA in 3 days. * Early sepsis secondary to above. clinically resolved * History of ankylosing spondylitis-patient follows up with Dr. Dao. Has been on Remicade every 6 weeks. * Proximal atrial fibrillation currently on rivaroxaban rate controlled. * History of embolic CVA -continue Lovenox plan * History of hypertension on LEONOR inhibitors * GERD continue PPI Brief hospital course Mr. 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 Patient was sent to the ER for further evaluation where CT scan revealed stricture of the terminal ileum and partial small bowel obstruction. Patient was also found to have pyuria/elevated white count at 15,300. Patient received 1 dose of antibiotics after cultures were drawn. Subsequently hospitalist service was consulted. Patient was started on NG tube decompression. At the time evaluation patient is alert and oriented. He was able to answer most of the questions. He has had a similar episode in hospitalization recently which resolved after treatment with IV steroids with bowel obstruction resulting secondary to inflammation at the anastomosis site from underlying Crohn's. He follows up with Dr. Dao and Charanjit for management of aneurysm spondylitis and has been on Remicade. His last dose was 4 weeks ago. Hospitalist service was consulted for admission. At the time of evaluation patient is alert and oriented. He was able to answer most questions. His symptoms started early in the morning with abdominal distention cramps and pain. He has not had a bowel movement in the last 24 hours. Symptoms were similar to the prior to presentation. Pain described as diffuse abdominal cramping 6 out of 10 to 8 out of 10 with associated nausea. 06/06-patient doing well. Had a bowel movement around 10 AM this morning. NG tube discontinued by GI. Recommend initiation of clears. On IV steroids/a ntibiotics for complicated UTI. Await culture sensitivities. No overnight fever chills. Abdominal pain much improved. NG output over 500 cc 06/07-patient had 2 bowel movements today. Doing well. Denies abdominal pain. Tolerating clears and advancing diet as per GI. Will likely discharge in 24 hours pending clinical improvement. Continuing steroids as per GI recommendations. Feels upbeat. No overnight pain fever or distention 06/08-patient doing well. No overnight events. No concerns per staff. No fever chills nausea vomiting. Last bowel movement today. Denies abdominal pain, recommend continuing low residue diet. Follow-up with Mirtha Mayes early next week. Continue oral prednisone as per GI recommendation, Augmentin for additional 3 days. Return to ER if worsening abdominal pain nausea vomiting. Repeat UA in 3 days after completion of antibiotic Discharge diagnosis: . - Time Spent with Patient Total time spent providing and/or coordinating discharge services: Greater than 30 minutes Medical - DS: Exam - Constitutional Vitals: Vital Signs Temp Pulse Resp BP BP Pulse Ox 06/08/19 07:59 98.3 F 20 107/71 98 06/08/19 04:00 97.5 F 65 16 106/69 98 06/07/19 23:22 98.1 F 70 16 120/79 99 06/07/19 19:38 97.4 F 73 18 112/69 98 06/07/19 15:50 97.4 F 20 105/65 99 06/07/19 11:56 98 F 20 123/72 100 Intake and Output 06/07/19 06/08/19 06/08/19 21:59 05:59 13:59 Intake Total 1020 575 50 Output Total 475 Balance 545 575 50 Intake: IV 100 50 50 Zosyn 3.375 gm In Dextrose 5% 100 50 50 in Water 50 ml @ 100 mls/hr IV Q6H [facility] Rx#:[id number] Oral 920 525 Output: Void Amount 475 Other: Percent of Meal Consumed 100% Feeding Ability Independent Urine Appearance Clear Urine Color Bright Yellow Urine Odor Normal Stool Size Moderate Moderate Stool Color Brown Brown Stool Consistency Loose Loose # Voids 1 # Bowel Movements 1 1 Weight 175 lb Medical - DS: Data Labs on day of discharge: Labs from last 24 hours 06/08/19 06/08/19 04:40 04:40 WBC 11.9 H RBC 3.84 L Hgb 10.9 L Hct 33.2 L MCV 86.6 MCH 28.5 MCHC 32.9 RDW 14.1 Plt Count 326 MPV 8.2 Total Counted 100 Seg Neutrophils % 89 H Band Neutrophils % Not Reportable Lymphocytes % 9 L Monocytes % (Manual) 2 Platelet Estimate Normal RBC Morphology Normal Sodium 141 Potassium 4.6 Chloride 103 Carbon Dioxide 28 Anion Gap 10.0 BUN 13 Creatinine 1.0 GFR Calculation 74 Glucose 125 H Uric Acid 4.0 Calcium 9.1 Phosphorus 3.2 Magnesium 2.2 Total Bilirubin 0.2 Direct Bilirubin < 0.2 GGT 54 AST 23 ALT 22 Alkaline Phosphatase 93 Lactate Dehydrogenase 181 Total Protein 5.8 L Albumin 3.2 Globulin 2.6 Albumin/Globulin Ratio 1.2 Triglycerides 98 Medical - DS: A/P - Patient/Caregiver Discharge Instructions Activity: increase activity as tolerated Diet: Low Fiber Additional Instructions: Continue residue diet Follow-up with Mirtha Mayes early next week UA in 3 days Oral Augmentin for 3 days Continue prednisone as per GI recommendation continue 6-mercaptopurine as per GI recommendations Return to ER if worsening dull pain nausea vomiting Prescriptions: Amoxicillin/Potassium Clav [Augmentin] 875 mg PO Q12H #6 tab Transmission Status: Pending to [facility] 2005 predniSONE [Deltasone] 40 mg PO DAILY #20 tab Transmission Status: Pending to [facility] 2005 Other Amb Orders: Urinalysis Time Frame: 3 Days, Location: None Selected - Problem Maintenance (1) Partial small bowel obstruction Status: Acute - Follow up Plan Follow up with: Catalino Londono MD [Primary Care Provider] - Disposition: Home, Self-Care Prognosis: Fair Rehab Potential: Fair I certify that the patient requires SNF services: No Overall status at discharge: patient is progressing back to baseline Medical - DS: Qual - VTE Deep Vein Thrombosis/Pulmonary Embolism Present on Admission: No
== END 2019-06-08 11:05 | disposition home or self-care (01) | DRG 388 ==
LOC: ED 13:33 → MEDSUR 16:44
PROVIDERS: ADMIT Internal Medicine; ATTEND Internal Medicine